=== PATIENT | female | born 1980 | race Caucasian/White ===

== ENCOUNTER 2016-09-11 06:43 | Day surgery (SDC) | payer BC, OTHER ==
[2016-09-05 15:40] VITALS: BMI 25.8
[~2016-09-11 06:43] MED LIST: DEXAMETHASONE SOD PHOSPHATE 10 MG/ML 1 ML VIAL IV ONE; HEPARIN SODIUM,PORCINE 5,000 UNIT/ML 1 ML VIAL SQ ONE; HYDROmorphone 1 MG/ML 1 ML SYRINGE IVP PRN; MIDAZOLAM 2 MG/2 ML VIAL IV PRN; SCOPOLAMINE 1.5MG/72HR PATCH TRANSDERM ONE; ceFAZolin 2 GM in SODIUM CHLORIDE 0.9% 100 ML IVPB ONE
[2016-09-11] MEDS: LACTATED RINGERS 1,000 ML IV SCH ×2 (08:10→08:15)
[2016-09-11] MEDS: LIDOCAINE 1% 20 ML VIAL (10MG/ML) FOR IV START INTRADERMA PRN ×2 (08:13→08:15)
[2016-09-11] MEDS ORDERED: fentaNYL (PF) 50 MCG/ML 2 ML AMP IV ONE (08:18)
[2016-09-11] MEDS: ONDANSETRON 4 MG/2 ML VIAL IVP ONE ×2 (08:30→12:00)
[2016-09-11] MEDS ORDERED: MIDAZOLAM 2 MG/2 ML VIAL ONE (09:24)
[2016-09-11] MEDS ORDERED: VECURONIUM 10 MG VIAL IV ONE (09:24)
[2016-09-11] MEDS ORDERED: LIDOCAINE 1% INJ 10MG/ML (20 ML MDV) ONE (09:24)
[2016-09-11] MEDS ORDERED: GLYCOPYRROLATE 0.2 MG/ML 2 ML VIAL ONE (09:24)
[2016-09-11] MEDS ORDERED: SUCCINYLCHOLINE CHLORIDE 100 MG/5 ML SYR IV ONE (09:24)
[2016-09-11] MEDS ORDERED: PHENYLEPHRINE-0.9% NACL SYG 1 MG/10 ML SYRINGE ONE (09:24)
[2016-09-11] MEDS ORDERED: KETOROLAC 30 MG/ML 1 ML VIAL ONE (09:24)
[2016-09-11] MEDS ORDERED: NEOSTIGMINE 1 MG/ML 10 ML VIAL ONE (09:24)
[2016-09-11] MEDS ORDERED: PROPOFOL 10 MG/ML 20 ML VIAL IV ONE (09:24)
[2016-09-11] MEDS ORDERED: HYDROmorphone (PF) 1 MG/ML ONE (09:24)
[2016-09-11] MEDS ORDERED: BUPIVACAIN-EPI 0.25%-1:200,000 30 ML VIAL SQ ONE (10:04)
[2016-09-11] MEDS ORDERED: LACTATED RINGERS 1,000 ML IV ONE (11:01)
--- NOTE | 2016-09-11 11:15 | P.OP ---
Date of Procedure: 09/11/16 Preoperative Diagnosis: Right inguinal hernia Postoperative Diagnosis: Right indirect inguinal hernia with right femoral hernia Procedure(s) Performed: Robot assisted right inguinal and femoral hernia repair with mesh Anesthesia: BRIAN Surgeon: Jasmine Monae Estimated Blood Loss (ml): 5 Pathology: none sent Condition: stable Disposition: PACU Indications for Procedure: right inguinal pain with swelling Operative Findings: Right indrect inguinal hernia Right femoral hernia Description of Procedure: Informed consent was obtained patient and then The patient was brought to the operating room and placed in supine position. General anesthesia with endotracheal intubation was performed as per anesthesia team. A chu catheter was inserted under sterile aseptic precautions. Choraprep was used to prep the skin followed by application of sterile drapes . The patient was placed in the lithotomy position. A timeout was performed to verify correct patient, correct procedure and correct side. Patient was confirmed to receive perioperative IV antibiotics, subcutaneous heparin 5000 units and bilateral SCDs were placed. The left upper quadrant point was identified and a stab incision was made. Veress needle was introduced and placement was confirmed with the help of the drop test. The abdomen was then insufflated to 15 mmHg. Once that was done 5 mm port was introduced into the left upper quadrant using the Optiview technique after which a 12 mm port was placed in the supraumbilical position and a 8 mm port in the right lower quadrant and then after that another 8 mm port was palce in the left lower quadrant . The robot was then docked with the central camera port and the 2 side working ports. The degree of scope was introduced and the abdomen down through the 12 mm port site. The cardiere forceps and scissors were introduced and the medial umbilical ligament was retracted and an incision was made int he peritoneum that was carried laterally to the lateral abdominal wall. This did this was further dissected with the help of blunt dissection using gentle stroking maneuvers all the way down to Navdeep ligament medially and laterally we went inferior exposing the vessels inferiorly. The round ligament was identified and the hernia sac was teased off of it with the help of blunt dissection. There was also another large piece or preperitoneal fat in conintuity wit this hernia that was herniating through the femoral canal. It was reduced with ease . Once the critical view was obtained, the 10 x 15 cm Bard Pro uppers edge burnisher mesh was introduced in the abdominal cavity with the lower part above the level of the peritoneal fold was then unfolded so that it covered all the orifices and covered the Navdeep's ligament medially once again pain positioned perfectly to seal was applied to the inferior edge of the mesh as well as around the Navdeep' s ligament after which the peritoneal flaps were closed with the help of running 2 0 v lock . the peritoneum as very fragile and care had to be taken to completely suture all the holes shit as well as not to tear it. Once that was done procedure was completed the sutures were cut. The robot was undocked and under laparoscopic vision the needles were removed. The 12 mm and the right 8 mm port site was closed with 0 pds using the kirstie call after which gas was turned off abdomen was thoroughly desufflated skins was closed with the help of 4-0 Monocryl and Dermabond. Chu catheter was removed patient was extubated and taken to recovery room in stable condition patient tolerated the procedure well there were no complications
[2016-09-11 11:31] VITALS: TEMP 97.4
[2016-09-11 12:19] VITALS: PULSE 86
[2016-09-11 12:29] VITALS: RESP 18
[2016-09-11] MEDS ORDERED: HYDROcodone/APAP 5-325MG 1 EACH TAB PO ONE (12:45)
[2016-09-11 13:05] VITALS: BP 107/62
== END 2016-09-11 13:34 | disposition home or self-care (01) ==
LOC: OR 06:43
PROVIDERS: ATTEND Surgery
DX: K41.90 Unilateral femoral hernia, without obstruction or gangrene, not specified as recurrent (principal); K40.90 Unilateral inguinal hernia, without obstruction or gangrene, not specified as recurrent; F17.290 Nicotine dependence, other tobacco product, uncomplicated; F32.9 Major depressive disorder, single episode, unspecified; Z88.1 Allergy status to other antibiotic agents; Z88.8 Allergy status to other drugs, medicaments and biological substances; Z79.899 Other long term (current) drug therapy
CPT/HCPCS: 49650; 49659; S2900; 81025

== ENCOUNTER → 2016-10-08 | Outpatient (CLI) | payer BC, OTHER | END | disposition home or self-care (01) | LOC: LABWHC1 13:34 | PROVIDERS: ATTEND Internal Medicine Endocrinology, Diabetes & Metabolism | DX: E04.1 Nontoxic single thyroid nodule (principal) | CPT/HCPCS: 36415; 84439; 84443; 84480 ==

== ENCOUNTER → 2016-11-14 | Outpatient (CLI) | payer BC | LOC: LABWHC1 11:41 | PROVIDERS: ATTEND Internal Medicine Endocrinology, Diabetes & Metabolism | DX: E04.1 Nontoxic single thyroid nodule (principal) | CPT/HCPCS: 36415; 84439; 84443 ==

== ENCOUNTER → 2016-11-27 | Outpatient (CLI) | payer BC ==
--- NOTE | 2016-11-27 10:35 | XR ---
EXAMINATION TYPE: XR chest 2V DATE OF EXAM: 11/27/2016 10:17 AM COMPARISON: 02/26/2016 INDICATION: Hemoptysis, cough TECHNIQUE: Single frontal view of the chest is obtained. FINDINGS: The heart size is normal. The pulmonary vasculature is normal. The lungs are clear. IMPRESSION: 1. No acute pulmonary process.
== END ==
LOC: RADXRMAIN 09:49
PROVIDERS: ATTEND Physician Assistant
DX: R04.2 Hemoptysis (principal)
CPT/HCPCS: 71020

== ENCOUNTER 2017-01-05 08:28 | Day surgery (SDC) | payer BC ==
[2017-01-01 15:36] VITALS: BMI 25.8
[~2017-01-05 08:28] MED LIST changes: -DEXAMETHASONE SOD PHOSPHATE 10 MG/ML 1 ML VIAL IV ONE; -HEPARIN SODIUM,PORCINE 5,000 UNIT/ML 1 ML VIAL SQ ONE; -HYDROmorphone 1 MG/ML 1 ML SYRINGE IVP PRN; +LACTATED RINGERS 1,000 ML IV SCH; +LIDOCAINE 1% 20 ML VIAL (10MG/ML) FOR IV START INTRADERMA PRN; -MIDAZOLAM 2 MG/2 ML VIAL IV PRN; -SCOPOLAMINE 1.5MG/72HR PATCH TRANSDERM ONE; -ceFAZolin 2 GM in SODIUM CHLORIDE 0.9% 100 ML IVPB ONE
[2017-01-05 08:44] VITALS: RESP 16; TEMP 97
[2017-01-05] MEDS ORDERED: PROPOFOL 10 MG/ML 20 ML VIAL IV ONE (09:19)
[2017-01-05] MEDS ORDERED: LIDOCAINE 1% INJ 10MG/ML (20 ML MDV) ONE (09:19)
[2017-01-05] MEDS ORDERED: KETOROLAC 30 MG/ML 1 ML VIAL ONE (09:19)
--- NOTE | 2017-01-05 09:21 | P.GSHP ---
History of Present Illness H&P Date: 01/05/17 Chief Complaint: GERD, dysphagia This is a 36-year-old female for from Dr. Marks. The patient has complaints of GERD dysphagia. She's also had hemoptysis. She presents today for EGD. - Constitutional Constitutional: Reports as per HPI Past Medical History Past Medical History: Neurologic Disorder, Thyroid Disorder Additional Past Medical History / Comment(s): ,left shoulder pain, kidney stones ,migraines History of Any Multi-Drug Resistant Organisms: None Reported Past Surgical History: Appendectomy, Hernia Repair, Tonsillectomy Additional Past Surgical History / Comment(s): BILAT inguinal hernia repair with mesh,kidney stone removal Past Anesthesia/Blood Transfusion Reactions: No Reported Reaction Additional Past Anesthesia/Blood Transfusion Reaction / Comment(s): no hx blood transfusion Past Psychological History: Anxiety Smoking Status: Current every day smoker Past Alcohol Use History: Occasional Additional Past Alcohol Use History / Comment(s): started smoking at age 13, smokes <1ppd Past Drug Use History: None Reported - Past Family History Mother Additional Family Medical History / Comment(s): hepatitis Father Additional Family Medical History / Comment(s): heart problems,aneurysm Medications and Allergies Home Medications Medication Instructions Recorded Confirmed Type Methimazole [Tapazole] 5 mg PO DAILY 09/05/16 01/05/17 History SUMAtriptan SUCCINATE [Sumatriptan 100 mg PO PRN 01/05/17 History Succinate] Allergies Allergy/AdvReac Type Severity Reaction Status Date / Time prochlorperazine Allergy Unknown Rash/Hives Verified 01/01/17 15:31 [From Compazine] prochlorperazine edisylate Allergy Unknown Rash/Hives Verified 01/01/17 15:31 [From Compazine] doxycycline Allergy Rash/Hives Verified 01/01/17 15:31 pseudoephedrine HCl Allergy Rash/Hives Verified 01/01/17 15:31 [From Sudafed] sertraline HCl [From Zoloft] Allergy Rash/Hives Verified 01/01/17 15:31 Surgical - Exam Vital Signs Temp Pulse Resp BP Pulse Ox 97.0 F L 76 16 95/65 98 01/05/17 08:42 01/05/17 08:42 01/05/17 08:42 01/05/17 08:42 01/05/17 08:42 - General well developed, no distress - Eyes PERRL - ENT normal pinna - Neck no masses - Respiratory normal expansion - Cardiovascular Rhythm: regular - Abdomen Abdomen: soft, non tender Assessment and Plan Plan: GERD, dysphagia. We'll perform EGD.
--- NOTE | 2017-01-05 09:30 | P.OP ---
Date of Procedure: 01/05/17 Preoperative Diagnosis: GERD, dysphagia Postoperative Diagnosis: Mild antral gastritis Small hiatal hernia Mild esophagitis Procedure(s) Performed: EGD Implants: Anesthesia: MAC Surgeon: Daniel Vann Pathology: other (Antrum, esophagus) Condition: stable Disposition: PACU Indications for Procedure: Operative Findings: Description of Procedure: The patient's placed on the endoscopy table in the lateral position. She received IV sedation. The gastroscope some placed oropharynx and passed into the esophagus and into the stomach. Scope was then placed through the pylorus. The first and second portion of the duodenum appeared normal. Scope was then brought back the antrum and this appeared mildly inflamed. A biopsies performed. The scope was unretroflexed and remainder some appeared normal. There was a small hiatal hernia. The GE junction was at 40 cm. The distal esophagus appeared mildly inflamed and a biopsy was performed. The proximal esophagus appeared normal. The scope was withdrawn for patient.
[2017-01-05 09:55] VITALS: BP 98/73; PULSE 71
== END 2017-01-05 10:40 | disposition home or self-care (01) ==
LOC: ORWHC2ENDO 08:28
PROVIDERS: ATTEND Surgery
DX: K29.50 Unspecified chronic gastritis without bleeding (principal); K20.0 Eosinophilic esophagitis; K44.9 Diaphragmatic hernia without obstruction or gangrene; E07.9 Disorder of thyroid, unspecified; F17.200 Nicotine dependence, unspecified, uncomplicated; Z79.899 Other long term (current) drug therapy; Z88.8 Allergy status to other drugs, medicaments and biological substances
CPT/HCPCS: 81025; 88305; 88312; 88342; 43239; J2001; J1885; J2704

== ENCOUNTER → 2017-01-09 | Outpatient (CLI) | payer BC, OTHER | END | disposition home or self-care (01) | LOC: LABWHC1 09:44 | PROVIDERS: ATTEND Internal Medicine Endocrinology, Diabetes & Metabolism | DX: E04.1 Nontoxic single thyroid nodule (principal) | CPT/HCPCS: 36415; 84439; 84443; 84480 ==

== ENCOUNTER 2017-01-31 07:54 | Emergency (ER) | payer BC, OTHER ==
[2017-01-31] MEDS ORDERED: SODIUM CHLORIDE 0.9% 1,000 ML IV STA (08:20)
[2017-01-31] MEDS ORDERED: ONDANSETRON 4 MG/2 ML VIAL IVP STA ×2 (08:20→10:18)
[2017-01-31] MEDS ORDERED: DICYCLOMINE 10 MG/ML 2 ML AMP IM STA (08:20)
[2017-01-31] MEDS ORDERED: SODIUM CHLORIDE 0.9% 500 ML IV STA ×2 (08:22→10:18)
--- NOTE | 2017-01-31 08:22 | ED ---
General Adult HPI - General Chief complaint: Dizziness Stated complaint: flu symptoms Time Seen by Provider: 01/31/17 08:11 Source: patient, RN notes reviewed Mode of arrival: ambulatory Limitations: no limitations - History of Present Illness Initial comments: 36-year-old female who presents emergency room today with chief complaint of symptoms of nausea vomiting diarrhea over the last week. She states she had symptoms started approximately a week ago with diarrhea and is felt nauseous throughout the week. She does admit to cramping in the abdomen. States she has had chills. She was to bodyaches. She denies any other complaints or symptoms at this time. Patient denies any recent fever, shortness of breath, chest pain, numbness or tingling, dysuria or hematuria, constipation or diarrhea , headaches or visual changes, or any other complaints. - Related Data Home Medications Medication Instructions Recorded Confirmed Methimazole [Tapazole] 5 mg PO DAILY 09/05/16 01/05/17 SUMAtriptan SUCCINATE [Sumatriptan 100 mg PO PRN 01/05/17 Succinate] Allergies Allergy/AdvReac Type Severity Reaction Status Date / Time prochlorperazine Allergy Unknown Rash/Hives Verified 01/31/17 07:59 [From Compazine] prochlorperazine edisylate Allergy Unknown Rash/Hives Verified 01/31/17 07:59 [From Compazine] doxycycline Allergy Rash/Hives Verified 01/31/17 07:59 pseudoephedrine HCl Allergy Rash/Hives Verified 01/31/17 07:59 [From Sudafed] sertraline HCl [From Zoloft] Allergy Rash/Hives Verified 01/31/17 07:59 Review of Systems ROS Statement: Those systems with pertinent positive or pertinent negative responses have been documented in the HPI. ROS Other: All systems not noted in ROS Statement are negative. Past Medical History Past Medical History: Neurologic Disorder, Thyroid Disorder Additional Past Medical History / Comment(s): ,left shoulder pain, kidney stones ,migraines History of Any Multi-Drug Resistant Organisms: None Reported Past Surgical History: Appendectomy, Hernia Repair, Tonsillectomy Additional Past Surgical History / Comment(s): BILAT inguinal hernia repair with mesh,kidney stone removal Past Anesthesia/Blood Transfusion Reactions: No Reported Reaction Additional Past Anesthesia/Blood Transfusion Reaction / Comment(s): no hx blood transfusion Past Psychological History: Anxiety Smoking Status: Current every day smoker Past Alcohol Use History: Occasional Past Drug Use History: None Reported - Past Family History Mother Additional Family Medical History / Comment(s): hepatitis Father Additional Family Medical History / Comment(s): heart problems,aneurysm General Exam - General Exam Comments Initial Comments: General: The patient is awake and alert, in no distress, and does not appear acutely ill. Eye: Pupils are equal, round and reactive to light, extra-ocular movements are intact. No nystagmus. There is normal conjunctiva bilaterally. No signs of icterus. Ears, nose, mouth and throat: There are moist mucous membranes and no oral lesions. Neck: The neck is supple, there is no tenderness or JVD. Cardiovascular: There is a regular rate and rhythm. No murmur, rub or gallop is appreciated. Respiratory: Lungs are clear to auscultation, respirations are non-labored, breath sounds are equal. No wheezes, stridor, rales, or rhonchi. Gastrointestinal: Soft, non-distended, non-tender abdomen without masses or organomegaly noted. There is no rebound or guarding present. No CVA tenderness. Bowel sounds are unremarkable. Musculoskeletal: Normal ROM, no tenderness. Strength 5/5. Sensation intact. Pulses equal bilaterally 2+. Neurological: A&O x 3. CN II-XII intact, There are no obvious motor or sensory deficits. Coordination appears grossly intact. Speech is normal. Skin: Skin is warm and dry and no rashes or lesions are noted. Psychiatric: Cooperative, appropriate mood & affect, normal judgment. Limitations: no limitations Course Vital Signs 01/31/17 01/31/17 07:57 08:55 Temperature 97.0 F L Pulse Rate 84 78 Respiratory 20 18 Rate Blood Pressure 112/73 108/66 O2 Sat by Pulse 97 94 L Oximetry Medical Decision Making - Medical Decision Making Reexamined at this time shows no signs of distress. Feeling better here in the emergency room. Labs been reviewed mild elevation of liver enzymes. Was discussed with patient. She is advised follow-up family doctor have repeat enzymes performed over the next week. Advised to return if symptoms increase or worsen. She does have nausea medication at home that she can use. She is advised that if it is not working to return here to the emergency room if any symptoms increase or worsen. She states understanding and is in agreement. - Lab Data Result diagrams: 01/31/17 08:50 01/31/17 08:50 Lab Results 01/31/17 01/31/17 01/31/17 Range/Units 08:50 08:50 08:50 WBC 5.3 (3.8-10.6) k/uL RBC 4.63 (3.80-5.40) m/uL Hgb 14.8 (11.4-16.0) gm/dL Hct 43.9 (34.0-46.0) % MCV 94.7 (80.0-100.0) fL MCH 32.0 (25.0-35.0) pg MCHC 33.8 (31.0-37.0) g/dL RDW 12.3 (11.5-15.5) % Plt Count 205 (150-450) k/uL Neutrophils % 64 % Lymphocytes % 23 % Monocytes % 7 % Eosinophils % 3 % Basophils % 1 % Neutrophils # 3.4 (1.3-7.7) k/uL Lymphocytes # 1.2 (1.0-4.8) k/uL Monocytes # 0.4 (0-1.0) k/uL Eosinophils # 0.1 (0-0.7) k/uL Basophils # 0.0 (0-0.2) k/uL Sodium 143 (137-145) mmol/L Potassium 3.6 (3.5-5.1) mmol/L Chloride 106 (98-107) mmol/L Carbon Dioxide 27 (22-30) mmol/L Anion Gap 10 mmol/L BUN 11 (7-17) mg/dL Creatinine 0.73 (0.52-1.04) mg/dL Est GFR (MDRD) Af Amer >60 (>60 ml/min/1.73 sqM) Est GFR (MDRD) Non-Af >60 (>60 ml/min/1.73 sqM) Glucose 96 (74-99) mg/dL Calcium 9.6 (8.4-10.2) mg/dL Total Bilirubin 0.6 (0.2-1.3) mg/dL AST 59 H (14-36) U/L ALT 89 H (9-52) U/L Alkaline Phosphatase 92 (38-126) U/L Total Protein 6.6 (6.3-8.2) g/dL Albumin 4.0 (3.5-5.0) g/dL Amylase <30 L (30-110) U/L Lipase 37 (23-300) U/L Urine Color Urine Appearance (Clear) Urine pH (5.0-8.0) Ur Specific [place] (1.001-1.035) Urine Protein (Negative) Urine Glucose (UA) (Negative) Urine Ketones (Negative) Urine Blood (Negative) Urine Nitrite (Negative) Urine Bilirubin (Negative) Urine Urobilinogen (<2.0) mg/dL Ur Leukocyte Esterase (Negative) Urine RBC (0-5) /hpf Urine WBC (0-5) /hpf Ur Squamous Epith Cells (0-4) /hpf Calcium Oxalate Crystal (None) /hpf Urine Mucus (None) /hpf Urine HCG, Qual Not Detected (Not Detectd) 01/31/17 Range/Units 08:50 WBC (3.8-10.6) k/uL RBC (3.80-5.40) m/uL Hgb (11.4-16.0) gm/dL Hct (34.0-46.0) % MCV (80.0-100.0) fL MCH (25.0-35.0) pg MCHC (31.0-37.0) g/dL RDW (11.5-15.5) % Plt Count (150-450) k/uL Neutrophils % % Lymphocytes % % Monocytes % % Eosinophils % % Basophils % % Neutrophils # (1.3-7.7) k/uL Lymphocytes # (1.0-4.8) k/uL Monocytes # (0-1.0) k/uL Eosinophils # (0-0.7) k/uL Basophils # (0-0.2) k/uL Sodium (137-145) mmol/L Potassium (3.5-5.1) mmol/L Chloride (98-107) mmol/L Carbon Dioxide (22-30) mmol/L Anion Gap mmol/L BUN (7-17) mg/dL Creatinine (0.52-1.04) mg/dL Est GFR (MDRD) Af Amer (>60 ml/min/1.73 sqM) Est GFR (MDRD) Non-Af (>60 ml/min/1.73 sqM) Glucose (74-99) mg/dL Calcium (8.4-10.2) mg/dL Total Bilirubin (0.2-1.3) mg/dL AST (14-36) U/L ALT (9-52) U/L Alkaline Phosphatase (38-126) U/L Total Protein (6.3-8.2) g/dL Albumin (3.5-5.0) g/dL Amylase (30-110) U/L Lipase (23-300) U/L Urine Color Yellow Urine Appearance Cloudy H (Clear) Urine pH 5.5 (5.0-8.0) Ur Specific [place] 1.028 (1.001-1.035) Urine Protein Trace H (Negative) Urine Glucose (UA) Negative (Negative) Urine Ketones Trace H (Negative) Urine Blood Negative (Negative) Urine Nitrite Negative (Negative) Urine Bilirubin Negative (Negative) Urine Urobilinogen 2.0 (<2.0) mg/dL Ur Leukocyte Esterase Negative (Negative) Urine RBC 2 (0-5) /hpf Urine WBC 1 (0-5) /hpf Ur Squamous Epith Cells 3 (0-4) /hpf Calcium Oxalate Crystal Occasional H (None) /hpf Urine Mucus Moderate H (None) /hpf Urine HCG, Qual (Not Detectd) Disposition Clinical Impression: Nausea vomiting and diarrhea Disposition: HOME SELF-CARE Condition: Good Instructions: Acute Nausea and Vomiting (ED) Additional Instructions: Please use medication as discussed. Please follow-up with family doctor in the next 2 days of symptoms have not improved. Please return to emergency room if the symptoms increase or worsen or for any other concerns. Referrals: Wil Paris MD [Primary Care Provider] - 1-2 days Time of Disposition: 11:08
[2017-01-31 09:23] LABS: Basophils % (A) 1 %; CH 32.2; CHCM 34.1; Eosinophils # (A) 0.1 k/uL (0-0.7); Eosinophils % (A) 3 %; HCT 43.9 % (34.0-46.0); HDW 2.24; HGB 14.8 gm/dL (11.4-16.0); Luc # (Auto) 0.16; Luc % (Auto) 3; Lymphocytes # (A) 1.2 k/uL (1.0-4.8); Lymphocytes % (A) 23 %; MCHC 33.8 g/dL (31.0-37.0); MCV 94.7 fL (80.0-100.0); Mean Platelet Volume 6.9; Monocytes # (A) 0.4 k/uL (0-1.0); Monocytes % (A) 7 %; Neutrophils # (A) 3.4 k/uL (1.3-7.7); Neutrophils % (A) 64 %; RBC 4.63 m/uL (3.80-5.40); RDW 12.3 % (11.5-15.5); WBC 5.3 k/uL (3.8-10.6); WBC (Perox) 5.28
[2017-01-31 09:30] LABS: ALT 89 U/L (9-52); AST 59 U/L (14-36); Alkaline Phosphatase 92 U/L (38-126); Amylase <30 U/L (30-110); Anion Gap 10 mmol/L; Blood Urea Nitrogen 11 mg/dL (7-17); Calcium 9.6 mg/dL (8.4-10.2); Carbon Dioxide 27 mmol/L (22-30); Chloride 106 mmol/L (98-107); Glucose 96 mg/dL (74-99); Non-African American GFR(MDRD) >60 (>60 ml/min/1.73 sqM); Potassium 3.6 mmol/L (3.5-5.1); Sodium 143 mmol/L (137-145); Total Bilirubin 0.6 mg/dL (0.2-1.3); Total Protein 6.6 g/dL (6.3-8.2)
[2017-01-31 09:32] LABS: Appearance,Urine Cloudy (Clear); Bilirubin,Urine Negative (Negative); Calcium Oxalate Crystals,Urine Occasional /hpf; Glucose,Urine (UA) Negative (Negative); Ketones,Urine Trace (Negative); Leukocyte Esterase,Urine Negative (Negative); Mucus,Urine Moderate /hpf; Nitrite,Urine Negative (Negative); PH, Urine 5.5 (5.0-8.0); Particle Count 9182; Protein,Urine Trace (Negative); RBC,Urine 2 /hpf (0-5); Specific Gravity,Urine 1.028 (1.001-1.035); Squamous Epithelial Cell,Urine 3 /hpf (0-4); UA Billing (MACRO vs. MICRO) MICRO; WBC,Urine 1 /hpf (0-5)
--- NOTE | 2017-01-31 09:54 | XR ---
EXAMINATION TYPE: XR KUB DATE OF EXAM: 01/31/2017 COMPARISON: NONE HISTORY: Pain TECHNIQUE: One view abdominal series FINDINGS: The osseous structures are intact. The bowel gas pattern is nonspecific. Lung bases are clear. IMPRESSION: 1. Nonspecific abdomen.
[2017-01-31 11:34] VITALS: BP 109/76; PULSE 71; RESP 16; TEMP 97.6
== END 2017-01-31 11:34 | disposition home or self-care (01) ==
LOC: EC 07:54
DX: R11.2 Nausea with vomiting, unspecified (principal); R19.7 Diarrhea, unspecified; R10.9 Unspecified abdominal pain; E07.9 Disorder of thyroid, unspecified; F17.200 Nicotine dependence, unspecified, uncomplicated; Z98.890 Other specified postprocedural states; Z90.49 Acquired absence of other specified parts of digestive tract; Z88.8 Allergy status to other drugs, medicaments and biological substances; Z88.1 Allergy status to other antibiotic agents; Z79.899 Other long term (current) drug therapy
CPT/HCPCS: 99284; 96372; 96374; 96376; 96361 ×3; 36415; 80053; 82150; 83690; 85025; 81001; 81025; 74000; J0500; J2405

== ENCOUNTER → 2017-03-10 | Outpatient (CLI) | payer BC, OTHER ==
[2017-03-10 15:56] LABS: Prolactin 14.6 ng/mL (3.0-18.6)
[2017-03-10 21:16] LABS: ACTH 17.9 pg/mL (0.00-45.99)
== END | disposition home or self-care (01) ==
LOC: LABWHC1 14:35
PROVIDERS: ATTEND Internal Medicine Endocrinology, Diabetes & Metabolism
DX: E04.1 Nontoxic single thyroid nodule (principal); R53.83 Other fatigue
CPT/HCPCS: 36415; 82024; 82533; 84146; 84439; 84443; 84480

== ENCOUNTER 2017-10-15 09:53 | Day surgery (SDC) | payer BC, OTHER ==
[2017-10-14 10:39] VITALS: BMI 23.3
[~2017-10-15 09:53] MED LIST changes: -LIDOCAINE 1% 20 ML VIAL (10MG/ML) FOR IV START INTRADERMA PRN
[2017-10-15 11:10] VITALS: TEMP 97.4
[2017-10-15] MEDS ORDERED: LIDOCAINE 1% INJ 10MG/ML (20 ML MDV) ONE (11:49)
[2017-10-15] MEDS ORDERED: PROPOFOL 10 MG/ML 20 ML VIAL IV ONE (11:49)
--- NOTE | 2017-10-15 12:33 | P.PCN ---
Date of Procedure: 10/15/17 Procedure(s) Performed: Procedure: Colonoscopy and biopsy. Preoperative diagnosis: Abdominal pain and diarrhea. Postoperative diagnosis: Exam within the colon and terminal ileum within normal limits. Preparation: HalfLytely prep. Sedation: Was provided by anesthesia. Brief clinical history: The patient is a 36-year-old female who is referred for this evaluation because of abdominal pains and diarrhea a few months duration. No bleeding or extraintestinal manifestations of inflammatory bowel disease or family history of inflammatory bowel disease. Procedure: With the patient on her left lateral decubitus position and after informed consent and adequate sedation, the perianal area was inspected and it did not show any fissures or fistulas. There were no masses felt on digital rectal examination. The Olympus CFQ 160L video colonoscope was then inserted in the rectum in the usual fashion and advanced to the cecum. I intubated the ileocecal valve and examined the terminal ileum. Terminal ileum and colon appeared healthy with no edema, erythema, friability, ulceration, exudation or spontaneous bleeding. I obtained biopsies from the terminal ileum and randomly from the colon then the endoscope was withdrawn. The patient tolerated the procedure well. Plan: The patient was reassured. Will await biopsy results. She will follow- up with you as planned and further plans will be made based on course and biopsy results.
[2017-10-15 13:04] VITALS: BP 108/70; PULSE 66; RESP 18
== END 2017-10-15 13:18 | disposition home or self-care (01) ==
LOC: ORWHC2ENDO 09:53
DX: R10.9 Unspecified abdominal pain (principal); R19.7 Diarrhea, unspecified; G43.909 Migraine, unspecified, not intractable, without status migrainosus; N20.0 Calculus of kidney; E07.9 Disorder of thyroid, unspecified; Z88.1 Allergy status to other antibiotic agents; Z88.8 Allergy status to other drugs, medicaments and biological substances; F17.210 Nicotine dependence, cigarettes, uncomplicated; Z79.1 Long term (current) use of non-steroidal anti-inflammatories (NSAID); Z79.899 Other long term (current) drug therapy
CPT/HCPCS: 88305; 45380; J2001; J2704

== ENCOUNTER → 2017-10-23 | Outpatient (CLI) | payer OTHER ==
[2017-10-23 18:04] LABS: T4, Free (Free Thyroxine) 0.92 ng/dL (0.78-2.19)
--- NOTE | 2017-10-24 09:11 | US ---
EXAMINATION TYPE: US pelvic complete DATE OF EXAM: 10/23/2017 COMPARISON: NONE CLINICAL HISTORY: Post Menopausal Bleeding and ovarian failure N95.0;no menses since February 2010 TECHNIQUE: Transvaginal (TV); patient's bladder was not full, thus TV US was offered to better asse ss endometrium Date of LMP: 2009 EXAM MEASUREMENTS: Uterus: 7.1 x 5.0 x 3.7 cm Endometrial Stripe: 1.4 cm Right Ovary: 2.3 x 1.4 x 1.4 cm Left Ovary: 2.8 x 1.9 x 1.8 cm 1. Uterus: Anteverted; small Nabothian cysts in cervic with largest = 0.3 x 0.3 x 0.21cm 2. Endometrium: thickened endometrium; complex hypoechoic area in upper endometrium = 0.5 x 0.5 x 0. 4cm 3. Right Ovary: couple of follicles with largest as simple cyst = 0.9 x 0.7 x 0.8cm. 4. Left Ovary: borders not well seen 5. Bilateral Adnexa: wnl 6. Posterior cul-de-sac: wnl IMPRESSION: Endometrium is heterogeneous and abnormally thickened if patient is truly postmenopausal at 36 years of age.
== END | disposition home or self-care (01) ==
LOC: RADUSWWP 16:12
PROVIDERS: ATTEND Obstetrics & Gynecology
DX: R93.8 Abnormal findings on diagnostic imaging of other specified body structures (principal); E28.39 Other primary ovarian failure; N95.0 Postmenopausal bleeding; E04.1 Nontoxic single thyroid nodule; E05.90 Thyrotoxicosis, unspecified without thyrotoxic crisis or storm
CPT/HCPCS: 76830; 82670; 83001; 83002; 83520; 84146; 84439; 84443

== ENCOUNTER → 2017-11-20 | Outpatient (CLI) | payer OTHER ==
[2017-11-20 09:22] LABS: Basophils # (A) 0.1 k/uL (0-0.2); Basophils % (A) 1 %; Eosinophils # (A) 0.3 k/uL (0-0.7); Eosinophils % (A) 4 %; HCT 42.9 % (34.0-46.0); HGB 14.7 gm/dL (11.4-16.0); Lymphocytes # (A) 2.4 k/uL (1.0-4.8); Lymphocytes % (A) 34 %; MCH 30.9 pg (25.0-35.0); MCHC 34.3 g/dL (31.0-37.0); MCV 90.1 fL (80.0-100.0); Mean Platelet Volume 6.7; Monocytes # (A) 0.6 k/uL (0-1.0); Monocytes % (A) 8 %; Neutrophils # (A) 3.7 k/uL (1.3-7.7); Neutrophils % (A) 51 %; Platelet Count 278 k/uL (150-450); RBC 4.76 m/uL (3.80-5.40); RDW 12.1 % (11.5-15.5); WBC 7.2 k/uL (3.8-10.6)
== END | disposition home or self-care (01) ==
LOC: LABPAT 09:02
PROVIDERS: ATTEND Obstetrics & Gynecology
DX: Z01.812 Encounter for preprocedural laboratory examination (principal)
CPT/HCPCS: 36415; 85025

== ENCOUNTER → 2017-12-18 | Outpatient (CLI) | payer OTHER ==
[2017-12-18 15:08] LABS: T4, Free (Free Thyroxine) 0.91 ng/dL (0.78-2.19)
== END | disposition home or self-care (01) ==
LOC: LABWHC1 14:00
PROVIDERS: ATTEND Internal Medicine Endocrinology, Diabetes & Metabolism
DX: E05.90 Thyrotoxicosis, unspecified without thyrotoxic crisis or storm (principal)
CPT/HCPCS: 36415; 84439; 84443; 84480

== ENCOUNTER → 2017-12-25 | Outpatient (CLI) | payer OTHER ==
--- NOTE | 2017-12-25 15:52 | US ---
EXAMINATION TYPE: US thyroid st tissue head/neck DATE OF EXAM: 12/25/2017 COMPARISON: NONE CLINICAL HISTORY: E04.1 THYROID NODULE. follow up on nodule GLAND SIZE: Right Lobe: 4.8 x 1.1 x 1.6 cm Overall Parenchyma: homogenous Left Lobe: 5.5 x 1.3 x 1.6 cm Overall Parenchyma: homogeneous Isthmus Thickness: 0.5 cm NODULES RIGHT: # of nodules measured on right: 0 LEFT: # of nodules measured on left: 0 ISTHMUS: # of nodules measured in the isthmus: 0 1. 1.3 X 1.2 x 0.7 cm mixed nodule at the right isthmus with well-defined margins. This nodule is wider than tall and shows no intranodular vascularity. Prior size: 1.3 x 0.7 x 0.9 cm Bilateral neck scanned, no evidence of lymphadenopathy. IMPRESSION: Nonspecific thyroid nodularity.
== END | disposition home or self-care (01) ==
LOC: RADUSWWP 13:50
PROVIDERS: ATTEND Internal Medicine Endocrinology, Diabetes & Metabolism
DX: E04.1 Nontoxic single thyroid nodule (principal)
CPT/HCPCS: 76536

== ENCOUNTER 2018-01-23 20:21 | Emergency (ER) | payer OTHER ==
[2018-01-23 20:30] VITALS: RESP 18
[2018-01-23] MEDS ORDERED: KETOROLAC 30 MG/ML 1 ML VIAL IVP STA (20:47)
[2018-01-23] MEDS ORDERED: METOCLOPRAMIDE 5 MG/ML 2 ML VIAL IVP STA (20:47)
[2018-01-23] MEDS ORDERED: diphenhydrAMINE 50 MG/ML 1 ML VIAL IVP STA (20:47)
[2018-01-23] MEDS ORDERED: SODIUM CHLORIDE 0.9% 1,000 ML IV STA (20:47)
--- NOTE | 2018-01-23 20:51 | ED ---
Headache HPI - General Chief Complaint: Headache Stated Complaint: Migraine Time Seen by Provider: 01/23/18 20:33 Source: RN notes reviewed Mode of arrival: ambulatory Limitations: no limitations - History of Present Illness Initial Comments: This is a 37-year-old female who presents to the emergency department with chief complaint of migraine. Patient does report a history of migraines and states that her current migraine is no different from previous. She states that she has a right-sided migraine for the past 4 days. She states that she has tried taking her Imitrex which has not provided any relief. She states she was also tried ibuprofen. She states that sometimes the Imitrex works and other times it does not. She also reports associated nausea. Denies fevers or chills, chest pain or shortness of breath, abdominal pain, vomiting, diarrhea or constipation. She denies any recent falls, injuries or trauma. - Related Data Home Medications Medication Instructions Recorded Confirmed SUMAtriptan SUCCINATE [Sumatriptan 100 mg PO DAILY PRN 01/05/17 01/23/18 Succinate] Citalopram Hydrobromide 40 mg PO HS 10/14/17 01/23/18 [Citalopram HBr] Ibuprofen [Motrin] 800 mg PO TID PRN 10/14/17 01/23/18 Methimazole [Tapazole] 2.5 mg PO QAM 11/23/17 01/23/18 Previous Rx's Medication Instructions Recorded Ibuprofen [Motrin] 600 mg PO Q6HR PRN #30 tab 11/26/17 Allergies Allergy/AdvReac Type Severity Reaction Status Date / Time prochlorperazine Allergy Unknown Rash/Hives Verified 01/23/18 20:30 [From Compazine] prochlorperazine edisylate Allergy Unknown Rash/Hives Verified 01/23/18 20:30 [From Compazine] doxycycline Allergy Rash/Hives Verified 01/23/18 20:30 pseudoephedrine HCl Allergy Rash/Hives Verified 01/23/18 20:30 [From Sudafed] sertraline HCl [From Zoloft] Allergy Rash/Hives Verified 01/23/18 20:30 Review of Systems ROS Statement: Those systems with pertinent positive or pertinent negative responses have been documented in the HPI. ROS Other: All systems not noted in ROS Statement are negative. Past Medical History Past Medical History: Neurologic Disorder, Thyroid Disorder Additional Past Medical History / Comment(s): ,left shoulder pain, kidney stones ,migraines History of Any Multi-Drug Resistant Organisms: None Reported Past Surgical History: Appendectomy, Hernia Repair, Tonsillectomy Additional Past Surgical History / Comment(s): BILAT inguinal hernia repair with mesh,kidney stone removal Past Anesthesia/Blood Transfusion Reactions: No Reported Reaction Additional Past Anesthesia/Blood Transfusion Reaction / Comment(s): no hx blood transfusion Past Psychological History: Anxiety Smoking Status: Current every day smoker Past Alcohol Use History: Occasional Past Drug Use History: None Reported - Past Family History Mother Additional Family Medical History / Comment(s): hepatitis Father Additional Family Medical History / Comment(s): heart problems,aneurysm General Exam - General Exam Comments Initial Comments: General: Awake and alert, well-developed; in no apparent distress. Lying comfortably on ED stretcher with 2 children at bedside. Lights are turned off. HEENT: Head atraumatic, normocephalic. Pupils are equal, round and reactive to light. Extraocular movements intact. Oropharynx moist without erythema or exudate. Neck: Supple. Normal ROM. Cardiovascular: Regular rate and rhythm. No murmurs, rubs or gallops. Chest symmetrical. Respiratory: Lungs clear to auscultation bilaterally. No wheezes, rales or rhonchi. Normal respiratory effort with no use of accessory muscles. Musculoskeletal: Normal ROM, no tenderness bilateral upper and lower extremities. Skin: [place], warm and dry without rashes or lesions. Neurological: Alert and oriented x3. CN II-XII grossly intact. Speech is fluent and answers are appropriate. No focal neuro deficits. Psychiatric: Normal mood and affect. No overt signs of depression or anxiety noted. Limitations: no limitations Course Vital Signs 01/23/18 20:28 Temperature 98.2 F Pulse Rate 84 Respiratory 18 Rate Blood Pressure 113/76 O2 Sat by Pulse 97 Oximetry Medical Decision Making - Medical Decision Making This is a 37-year-old female who presents to the emergency department with chief complaint of migraine. Patient does have a history of migraine and states that her current one is no different from her normal. She states that she has been taking Imitrex at home with minimal relief. She states that sometimes Imitrex does not work for her and other times it does. Denies any recent falls, injuries or trauma. Patient given headache cocktail and fluids while in the emergency department. She states that her headache has improved and is ready to be discharged home. Vital signs are stable and patient is in no acute distress. She'll be discharged home at this time. All questions answered. Disposition Clinical Impression: Migraine Disposition: HOME SELF-CARE Condition: Good Instructions: Migraine Headache (ED) Additional Instructions: Please follow up with primary care provider within 1-2 days. Return to emergency department if symptoms should worsen or any concerns arise. Is patient prescribed a controlled substance at d/c from ED?: No Referrals: Wil Paris MD [Primary Care Provider] - 1-2 days Time of Disposition: 21:38
[2018-01-23 22:01] VITALS: BP 133/77; PULSE 90; TEMP 98
== END 2018-01-23 22:01 | disposition home or self-care (01) ==
LOC: EC 20:21
DX: G43.909 Migraine, unspecified, not intractable, without status migrainosus (principal); E07.9 Disorder of thyroid, unspecified; F41.9 Anxiety disorder, unspecified; F17.200 Nicotine dependence, unspecified, uncomplicated; Z79.899 Other long term (current) drug therapy; Z88.1 Allergy status to other antibiotic agents; Z88.8 Allergy status to other drugs, medicaments and biological substances
CPT/HCPCS: 99283; 96374; 96375 ×2; 96361; J1200; J2765; J1885

== ENCOUNTER → 2018-02-22 | Outpatient (CLI) | payer OTHER ==
[2018-02-22 14:35] LABS: Basophils % (A) 1 %; Eosinophils # (A) 0.2 k/uL (0-0.7); Eosinophils % (A) 3 %; HCT 39.3 % (34.0-46.0); HGB 13.2 gm/dL (11.4-16.0); Lymphocytes # (A) 1.8 k/uL (1.0-4.8); Lymphocytes % (A) 30 %; MCH 31.1 pg (25.0-35.0); MCHC 33.6 g/dL (31.0-37.0); MCV 92.8 fL (80.0-100.0); Mean Platelet Volume 6.9; Monocytes # (A) 0.4 k/uL (0-1.0); Monocytes % (A) 6 %; Neutrophils # (A) 3.5 k/uL (1.3-7.7); Neutrophils % (A) 59 %; Platelet Count 207 k/uL (150-450); RBC 4.24 m/uL (3.80-5.40); RDW 12.4 % (11.5-15.5); WBC 5.9 k/uL (3.8-10.6)
[2018-02-22 14:57] LABS: Anion Gap 11 mmol/L; Blood Urea Nitrogen 10 mg/dL (7-17); Calcium 9.4 mg/dL (8.4-10.2); Carbon Dioxide 29 mmol/L (22-30); Chloride 103 mmol/L (98-107); Glucose 86 mg/dL (74-99); Potassium 4.1 mmol/L (3.5-5.1); Sodium 143 mmol/L (137-145)
== END | disposition home or self-care (01) ==
LOC: LABPAT 14:01
PROVIDERS: ATTEND Obstetrics & Gynecology
DX: Z01.812 Encounter for preprocedural laboratory examination (principal)
CPT/HCPCS: 36415; 80048; 85025

== ENCOUNTER 2018-02-25 05:40 | Observation (INO) | payer OTHER ==
[2018-02-22 15:48] VITALS: BMI 22.6
--- NOTE | 2018-02-24 16:29 | P.HPOB ---
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 Endometrial biopsy and sampling was done revealing benign tissue however she continues to bleed despite this sampling and need for more thorough evaluation is done. Is also very disconcerting to her that she continues to have bleeding and she is postmenopausal based on labs. Risks/ benefits/alternatives to a robotic-assisted left scopic hysterectomy with possible NICOLE and possible BSO was discussed and thoroughly reviewed with the patient and all questions were answered for her prior to proceeding to the operating room. 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 All other questions are answered for her prior to proceeding to the operating room. Past Medical History Past Medical History: GERD/Reflux, Thyroid Disorder Additional Past Medical History / Comment(s): left shoulder pain, kidney stones , migraines,varicose veins, History of Any Multi-Drug Resistant Organisms: None Reported Past Surgical History: Appendectomy, Hernia Repair, Tonsillectomy Additional Past Surgical History / Comment(s): alberto inguinal hernia with mesh, lithotripsy Past Anesthesia/Blood Transfusion Reactions: No Reported Reaction Additional Past Anesthesia/Blood Transfusion Reaction / Comment(s): . Smoking Status: Current every day smoker - Past Family History Mother Family Medical History: No Reported History Additional Family Medical History / Comment(s): . Father Additional Family Medical History / Comment(s): heart problems,aneurysm Medications and Allergies Home Medications Medication Instructions Recorded Confirmed Type SUMAtriptan SUCCINATE [Sumatriptan 100 mg PO DAILY PRN 01/05/17 02/22/18 History Succinate] Citalopram Hydrobromide 40 mg PO HS 10/14/17 02/22/18 History [Citalopram HBr] Methimazole [Tapazole] 2.5 mg PO Q48H 11/23/17 02/22/18 History Ibuprofen [Motrin] 600 mg PO Q6HR PRN #30 tab 11/26/17 02/22/18 Rx Methimazole [Tapazole] 5 mg PO Q48H 02/22/18 02/22/18 History Allergies Allergy/AdvReac Type Severity Reaction Status Date / Time prochlorperazine Allergy Unknown Rash/Hives Verified 02/22/18 15:39 [From Compazine] prochlorperazine edisylate Allergy Unknown Rash/Hives Verified 02/22/18 15:39 [From Compazine] doxycycline Allergy Rash/Hives Verified 02/22/18 15:39 pseudoephedrine HCl Allergy Rash/Hives Verified 02/22/18 15:39 [From Sudafed] sertraline HCl [From Zoloft] Allergy Rash/Hives Verified 02/22/18 15:39 Exam Osteopathic Statement: *. No significant issues noted on an osteopathic structural exam other than those noted in the History and Physical/Consult. - OBG Physical Exam Breast: both: normal (no masses) Abdomen: bowel sounds normal, no diffuse tenderness, no bruit present, no guarding noted, no hepatomegaly, no splenomegaly, no mass Vulva: both: normal Vagina: normal moisture, no discharge Cervix: no lesion, no discharge Uterus: normal size, normal contour Adnexa: both: normal Anus/Rectum: normal perianal skin, no rectal mass, no hemorrhoids, heme negative
[~2018-02-25 05:40] MED LIST changes: -LACTATED RINGERS 1,000 ML IV SCH; +ceFAZolin IN SWFI 2 GM/20 ML SYRINGE IVP ONE
[2018-02-25] MEDS ORDERED: MIDAZOLAM 2 MG/2 ML VIAL IV PRN (05:43)
[2018-02-25] MEDS ORDERED: HYDROmorphone 0.5 MG/0.5 ML SYRINGE IVP PRN (05:43)
[2018-02-25] MEDS ORDERED: ONDANSETRON 4 MG/2 ML VIAL IVP ONE (05:43)
[2018-02-25] MEDS ORDERED: DEXAMETHASONE SOD PHOSPHATE 10 MG/ML 1 ML VIAL IV ONE (05:43)
[2018-02-25] MEDS: LACTATED RINGERS 1,000 ML IV SCH ×2 (06:34→07:32)
[2018-02-25] MEDS ORDERED: LIDOCAINE 1% 20 ML VIAL (10MG/ML) FOR IV START SQ ONE (06:34)
[2018-02-25] MEDS ORDERED: KETOROLAC 30 MG/ML 1 ML VIAL ONE (07:33)
[2018-02-25] MEDS ORDERED: HYDROmorphone (PF) 1 MG/ML ONE (07:33)
[2018-02-25] MEDS ORDERED: NEOSTIGMINE 1 MG/ML 10 ML VIAL ONE (07:33)
[2018-02-25] MEDS ORDERED: MIDAZOLAM 2 MG/2 ML VIAL ONE (07:33)
[2018-02-25] MEDS ORDERED: GLYCOPYRROLATE 0.2 MG/ML 2 ML VIAL ONE (07:33)
[2018-02-25] MEDS ORDERED: PROPOFOL 10 MG/ML 20 ML VIAL IV ONE (07:33)
[2018-02-25] MEDS ORDERED: LIDOCAINE 1% INJ 10MG/ML (20 ML MDV) ONE (07:33)
[2018-02-25] MEDS ORDERED: fentaNYL (PF) 50 MCG/ML 2 ML AMP ONE (07:33)
[2018-02-25] MEDS ORDERED: ROCURONIUM BROMIDE 10 MG/ML 10 ML VIAL IV ONE (07:33)
[2018-02-25] MEDS ORDERED: LACTATED RINGERS 1,000 ML IV ONE (07:47)
[2018-02-25] MEDS ORDERED: ONDANSETRON 4 MG/2 ML VIAL IVP PRN (09:02)
[2018-02-25] MEDS ORDERED: Acetaminophen-Codeine 300-30mg TAB PO PRN (09:02)
[2018-02-25] MEDS ORDERED: SIMETHICONE 80 MG CHEWABLE PO PRN (09:02)
[2018-02-25] MEDS ORDERED: ROPIVACAINE 5 MG/ML 30 ML VIAL MISCELLANE ONE (09:03)
--- NOTE | 2018-02-25 09:09 | P.OP ---
Date of Procedure: 02/25/18 Preoperative Diagnosis: Postmenopausal bleeding Postoperative Diagnosis: Same with peritoneal mass Procedure(s) Performed: Robotic-assisted laparoscopic hysterectomy with excisional biopsy of peritoneal mass Anesthesia: BRIAN Surgeon: Raphael Marcus Track Layer Head #1: Sangita Zapata Estimated Blood Loss (ml): 10 IV fluids (ml): 900 Urine output (ml): 100 Pathology: other (Uterus, cervix, and peritoneal mass) Condition: stable Disposition: floor Operative Findings: Approximately a 2 cm peritoneal mass was noted and excised from the left adnexal region adjacent to the bladder Description of Procedure: Patient was taken to the operating suite where a general anesthetic was found be adequate. She was prepped and draped in the normal sterile fashion placed in dorsal lithotomy position. Initially a weighted speculum was inserted into the vagina and anterior lip of the cervix was identified and grasped with a single-tooth tenaculum. Uterus was then sounded to 9 cm and the cup size was better to 3.5 cm. Sutures were placed at 3 and 9 for assistance in removal of the uterus. Sumi manipulator was then inserted without difficulty and maximal Ascent was noted. Villagomez cath was then placed other instruments were removed from the vagina. Gloves were changed and attention was turned to the abdominal portion procedure where 3 mL of quarter percent Marcaine was injected periumbilically. Through this injected anesthetic a 5 mm skin incision was made and through this incision under direct visualization with an optical trocar and sleeve the camera was inserted. Once peritoneal placement was assured gas was allowed to fully insufflate the abdomen and patient's placement steep Trendelenburg position. Once this was accomplished 2 lateral ports were placed proxy 10 cm lateral to the umbilicus and a fourth port and sleeve were inserted 31 cm incision between the left lateral and medial ports. At this point robot was brought in and docked once fully docked a [place] was placed in the one arm and a scissor and the 2 arm and I broke scrub to go to the console. Observations pelvis were noted there was a approximately 2 cm elliptical what appeared to be fatty tumor adjacent to the bladder that was grasped and elevated it was firm in density and was therefore excised using the scissor and cautery and was then removed in total. Once is accomplished uterus was anteverted and tipped to the right-hand side utero-ovarian ligament was identified cauterized and ligated fallopian tube was then identified cauterized and ligated mesosalpinx tissues were cauterized and ligated to the round ligament. Round blade was then cauterized ligated and the anterior posterior leafs the broad ligament were fully developed. Cauterization of the uterine vascularity on the left side of the uterus was then accomplished. Undermining the bladder flap this point was done by using the [place] undermining the tissue and the scissor to incise across face uterus. Bladder flap was then fully created and bladder was dissected out of the operative field. Right side of the uterus was then fully developed by anteverting uterus and tipping into the left-hand side. This was done in a similar fashion. Once both right and left uterine vascularity was cauterized anterior colpotomy was made using the scissor across the from the vagina following the cup. Moving in a counterclockwise fashion at this point cheating head when necessary to maintain excellent hemostasis the cup was called and a 360 fashion until the cervix and vagina were . Uterus was then pushed down into the vagina to maintain pneumoperitoneum. Once this was accomplished any bleeding was cauterized and excellent hemostasis was noted from the pedicles. Instruments were then exchanged for a cardia grasper and a make suture cut and using to OB lock suture the vaginal cuff was closed. Once this was accomplished instruments were removed and gas was allowed to expel from the abdomen. 5 deep breaths performed provided during this process. I did re-scrub in and did a cystoscopy with good flow noted from both ureteral jets and Dr. Zapata close the incision subcuticularly and then injected around the incisions with local anesthetic. Sponge, lap, needle counts were all correct 2. Patient was then taken to the recovery room in stable and satisfactory condition.
[2018-02-25 09:47] VITALS: RESP 16
[2018-02-25] MEDS: Acetaminophen-Codeine 300-30mg TAB PO PRN ×2 (13:00→19:25)
[2018-02-25] MEDS: KETOROLAC 30 MG/ML 1 ML VIAL IVP PRN ×2 (15:27→22:36)
[2018-02-25] MEDS ORDERED: SUMAtriptan SUCCINATE 50 MG TAB PO STA (19:54)
[2018-02-25] MEDS: SENNOSIDES-DOCUSATE SODIUM 1 EACH TAB PO SCH (23:41)
[2018-02-26] MEDS: LACTATED RINGERS 1,000 ML IV SCH (00:36)
[2018-02-26 03:44] VITALS: TEMP 97.9
[2018-02-26] MEDS ORDERED: IBUPROFEN 600 MG TAB PO PRN (09:07)
[2018-02-26] MEDS: SENNOSIDES-DOCUSATE SODIUM 1 EACH TAB PO SCH (09:20)
--- NOTE | 2018-02-26 09:24 | P.DS ---
Providers Date of admission: 02/25/18 20:13 Expected date of discharge: 02/26/18 Attending physician: Raphael Marcus Primary care physician: Wil Paris [facility] Course: Grecia is doing very well postop day 1. She is involuting, voiding, and she is tolerating her diet. She voices no complaints. Vital signs are stable and afebrile. Heart regular, lungs clear, extremities without pain. Incisions are intact. She is passing flatus and has bowel sounds. Assessment post op day 1. Plan discharged home follow up with me in 1 week. Prescription for Tylenol 3 and Motrin been provided. All discharge discharge instructions were reviewed with patient in detail and all questions are answered for her prior to her discharge. She is stable for discharge at this time. Patient Condition at Discharge: Good Plan - Discharge Summary Discharge Rx Participant: Yes New Discharge Prescriptions: New Acetaminophen-Codeine 300-30mg [Tylenol #3] 1 tab PO Q4H PRN #30 tablet PRN Reason: Pain Ibuprofen [Motrin] 600 mg PO Q6HR PRN #30 tab PRN Reason: Pain No Action SUMAtriptan SUCCINATE [Sumatriptan Succinate] 100 mg PO DAILY PRN PRN Reason: Migraine Headache Citalopram Hydrobromide [Citalopram HBr] 40 mg PO HS Methimazole [Tapazole] 2.5 mg PO Q48H Ibuprofen [Motrin] 600 mg PO Q6HR PRN #30 tab PRN Reason: Pain Methimazole [Tapazole] 5 mg PO Q48H Discharge Medication List SUMAtriptan SUCCINATE [Sumatriptan Succinate] 100 mg PO DAILY PRN 01/05/17 [ History] Citalopram Hydrobromide [Citalopram HBr] 40 mg PO HS 10/14/17 [History] Methimazole [Tapazole] 2.5 mg PO Q48H 11/23/17 [History] Ibuprofen [Motrin] 600 mg PO Q6HR PRN #30 tab 11/26/17 [Rx] Methimazole [Tapazole] 5 mg PO Q48H 02/22/18 [History] Acetaminophen-Codeine 300-30mg [Tylenol #3] 1 tab PO Q4H PRN #30 tablet [Rx] Ibuprofen [Motrin] 600 mg PO Q6HR PRN #30 tab 02/26/18 [Rx] Follow up Appointment(s)/Referral(s): Raphael Marcus DO [Doctor of Osteopathic Medicine] - 1 Week Activity/Diet/Wound Care/Special Instructions: No heavy lifting, limit stairs and driving, and pelvic rest. If any high temperatures, heavy bleeding, or severe pain call my office Discharge Disposition: HOME SELF-CARE
[2018-02-26 12:11] VITALS: BP 114/72; PULSE 88
== END 2018-02-26 10:30 | disposition home or self-care (01) ==
LOC: OR 05:40 → 4FBP 09:18 → OR 20:13
PROVIDERS: ADMIT Obstetrics & Gynecology; ATTEND Obstetrics & Gynecology
DX: N80.0 Endometriosis of uterus (principal); N95.0 Postmenopausal bleeding; K65.4 Sclerosing mesenteritis; E28.39 Other primary ovarian failure; N84.0 Polyp of corpus uteri; K21.9 Gastro-esophageal reflux disease without esophagitis; E07.9 Disorder of thyroid, unspecified; I83.90 Asymptomatic varicose veins of unspecified lower extremity; G43.909 Migraine, unspecified, not intractable, without status migrainosus; F17.200 Nicotine dependence, unspecified, uncomplicated; Z90.89 Acquired absence of other organs; Z87.442 Personal history of urinary calculi; Z82.49 Family history of ischemic heart disease and other diseases of the circulatory system; Z79.899 Other long term (current) drug therapy; Z88.1 Allergy status to other antibiotic agents; Z88.8 Allergy status to other drugs, medicaments and biological substances
CPT/HCPCS: 49329; 58550; S2900; 81025; 86850; 86900; 86901; 88305; 88307

== ENCOUNTER → 2018-03-01 | Outpatient (CLI) | payer OTHER ==
[2018-03-01 15:15] LABS: T4, Free (Free Thyroxine) 0.88 ng/dL (0.78-2.19)
== END | disposition home or self-care (01) ==
LOC: LABWHC1 13:24
PROVIDERS: ATTEND Internal Medicine Endocrinology, Diabetes & Metabolism
DX: E05.90 Thyrotoxicosis, unspecified without thyrotoxic crisis or storm (principal)
CPT/HCPCS: 36415; 84439; 84443; 84480

== ENCOUNTER 2018-04-13 21:15 | Emergency (ER) | payer OTHER ==
[2018-04-13 21:31] VITALS: BP 114/73; TEMP 97.7
[2018-04-13] MEDS ORDERED: IPRATROPIUM-ALBUTEROL 3 ML NEB INHALATION STA (22:01)
[2018-04-13] MEDS ORDERED: predniSONE 10 MG TAB PO STA (22:02)
--- NOTE | 2018-04-13 22:06 | XR ---
EXAMINATION TYPE: XR chest 2V DATE OF EXAM: 04/13/2018 COMPARISON: 11/27/2016 HISTORY: 37-year-old female with cough and congestion, pain TECHNIQUE: PA and lateral views FINDINGS: The cardiomediastinal silhouette, aorta, and pulmonary vasculature are within normal limits. Mild dif fuse interstitial prominence. No consolidation or pleural effusion. IMPRESSION: Interstitial prominence could represent bronchitis or chronic asthma. No focal infiltrate seen.
[2018-04-13] MEDS ORDERED: ALBUTEROL NEBULIZED 2.5 MG/3 ML INHALATION STA ×2 (22:08→22:43)
--- NOTE | 2018-04-13 22:08 | ED ---
URI HPI - General Chief Complaint: Upper Respiratory Infection Stated Complaint: cold/congestion Time Seen by Provider: 04/13/18 21:33 Source: patient Mode of arrival: ambulatory Limitations: no limitations - History of Present Illness Initial Comments: This a 37-year-old female with past medical history of present today for chief complaint of cough and wheeze 6 days. Patient states that she had been sneezing, had dry cough and also low-grade fever. Thursday she called the work today symptoms. As the weekend progressed she felt as if she could hear wheezing, but no longer had a low grade fever. In addition she admitted congestion, some chest tightness and body aches. Patient does not have history of asthma and denies history of COPD however she is a daily smoker of half pack per day. Patient states that last year she had similar symptoms and was diagnosed with walking pneumonia. Upon arrival to the emergency room today patient's vital signs stable oxygen saturation 100% room air, afebrile. - Related Data Home Medications Medication Instructions Recorded Confirmed SUMAtriptan SUCCINATE [Sumatriptan 100 mg PO DAILY PRN 01/05/17 02/22/18 Succinate] Citalopram Hydrobromide 40 mg PO HS 10/14/17 02/25/18 [Citalopram HBr] Methimazole [Tapazole] 2.5 mg PO Q48H 11/23/17 02/25/18 Methimazole [Tapazole] 5 mg PO Q48H 02/22/18 02/25/18 Previous Rx's Medication Instructions Recorded Ibuprofen [Motrin] 600 mg PO Q6HR PRN #30 tab 11/26/17 Acetaminophen-Codeine 300-30mg 1 tab PO Q4H PRN #30 tablet 02/26/18 [Tylenol #3] Ibuprofen [Motrin] 600 mg PO Q6HR PRN #30 tab 02/26/18 Albuterol Inhaler [Ventolin Hfa 1 - 2 puff INHALATION RT-Q6H PRN 5 04/13/18 Inhaler] Days #1 inhaler Azithromycin 250 mg PO DAILY 4 Days #4 tablet 04/13/18 predniSONE 20 mg PO DAILY 4 Days #4 tab 04/13/18 Allergies Allergy/AdvReac Type Severity Reaction Status Date / Time prochlorperazine Allergy Unknown Rash/Hives Verified 04/13/18 21:31 [From Compazine] prochlorperazine edisylate Allergy Unknown Rash/Hives Verified 04/13/18 21:31 [From Compazine] doxycycline Allergy Rash/Hives Verified 04/13/18 21:31 pseudoephedrine HCl Allergy Rash/Hives Verified 04/13/18 21:31 [From Sudafed] sertraline HCl [From Zoloft] Allergy Rash/Hives Verified 04/13/18 21:31 Review of Systems ROS Statement: Those systems with pertinent positive or pertinent negative responses have been documented in the HPI. ROS Other: All systems not noted in ROS Statement are negative. Constitutional: Reports: fever. Denies: chills, night sweats Eyes: Denies: eye discharge ENT: Denies: ear pain, throat pain Respiratory: Reports: cough, wheezes. Denies: dyspnea, hemoptysis, stridor Cardiovascular: Denies: chest pain, palpitations, edema, syncope Endocrine: Denies: fatigue Gastrointestinal: Denies: abdominal pain, nausea, vomiting Genitourinary: Denies: urgency, dysuria Skin: Denies: rash, lesions Neurological: Denies: headache, weakness, numbness, paresthesias, confusion Past Medical History Past Medical History: Neurologic Disorder, Thyroid Disorder Additional Past Medical History / Comment(s): ,left shoulder pain, kidney stones ,migraines History of Any Multi-Drug Resistant Organisms: None Reported Past Surgical History: Hysterectomy Additional Past Surgical History / Comment(s): BILAT inguinal hernia repair with mesh,kidney stone removal Past Anesthesia/Blood Transfusion Reactions: No Reported Reaction Additional Past Anesthesia/Blood Transfusion Reaction / Comment(s): no hx blood transfusion Past Psychological History: Anxiety Smoking Status: Current every day smoker Past Alcohol Use History: Occasional Past Drug Use History: None Reported - Past Family History Mother Additional Family Medical History / Comment(s): . Father Additional Family Medical History / Comment(s): heart problems,aneurysm General Exam - General Exam Comments Initial Comments: General: The patient is awake and alert, in no distress, and does not appear acutely ill. Eye: Pupils are equal, round and reactive to light, extra-ocular movements are intact. No nystagmus. There is normal conjunctiva bilaterally. No signs of icterus. Ears, nose, mouth and throat: There are moist mucous membranes and no oral lesions. Oropharygnx non erythematous, uvula midline, no anterior cervical lymphadenopathy. Neck: The neck is supple, there is no tenderness or JVD. Cardiovascular: There is a regular rate and rhythm. No murmur, rub or gallop is appreciated. Respiratory: Inspiratory wheeze in upper lung [place], no expiratory wheeze, no crackles, stridor, rhonchi or rales. No egophony, or tactile fremitus. respirations are non-labored, breath sounds are equal. There is no use of accessory muscles, cyanosis, or intercostal retractions. Musculoskeletal: Normal ROM, no tenderness. Strength 5/5. Sensation intact. Pulses equal bilaterally 2+. Neurological: A&O x 3. CN II-XII intact, There are no obvious motor or sensory deficits. Coordination appears grossly intact. Speech is normal. Skin: Skin is warm and dry and no rashes or lesions are noted. Psychiatric: Cooperative, appropriate mood & affect, normal judgment. Limitations: no limitations Course Vital Signs 04/13/18 04/13/18 04/13/18 21:29 22:17 22:29 Temperature 97.7 F Pulse Rate 80 70 76 Respiratory 18 16 16 Rate Blood Pressure 114/73 O2 Sat by Pulse 100 Oximetry 04/13/18 04/13/18 23:12 23:22 Temperature Pulse Rate 78 78 Respiratory Rate Blood Pressure O2 Sat by Pulse Oximetry Medical Decision Making - Medical Decision Making Pt VS stable afebrile, 100% O2 Sat on RA, HR WNL. Given hx of smoking and physical examination findings of inspiratory wheeze pt was given 1 neb albuterol treatment, pt stated that she has tolerated it in the past, and prednisone 30mg. This decreased the wheeze significantly. Pt stated her breathing felt better. Pt was given second albuterol nebulizer and stated she felt significantly better, no longer experiencing any tightness in her chest. Wheeze was absent on reevaluation. CXR obtained revealed evidence for bronchitis , questionable for possible early consolidation. Pt was treated ppx as for outpatient pneumonia with 1x dose 500mg azithromycin in ED. Then RX for 250mg daily x4 days, prednisone 20mg daily x4 days and ventolin inhaler. Pt agreed with plan and case was discussed in detail with Dr. Duque who agreed with impression and plan. Pt was discharged in stable condition, with PCP in 1-2 days. Pt denied questions at this time.Pt was told to return to the ED for worsening symptoms including fever, nightsweats, worsening cough, productive cough, rigors-pt verbally agreed. Disposition Clinical Impression: Bronchitis Disposition: HOME SELF-CARE Condition: Good Instructions: Acute Bronchitis (ED) Additional Instructions: Please use medication as discussed. Please follow-up with family doctor in the next 2 days.Please return to emergency room if the symptoms increase or worsen or for any other concerns. Prescriptions: Albuterol Inhaler [Ventolin Hfa Inhaler] 1 - 2 puff INHALATION RT-Q6H PRN 5 Days #1 inhaler PRN Reason: Wheezing Azithromycin 250 mg PO DAILY 4 Days #4 tablet predniSONE 20 mg PO DAILY 4 Days #4 tab Is patient prescribed a controlled substance at d/c from ED?: No Referrals: Wil Paris MD [Primary Care Provider] - 1-2 days Time of Disposition: 23:36
[2018-04-13 22:20] VITALS: RESP 16
[2018-04-13 23:12] VITALS: PULSE 78
[2018-04-13] MEDS ORDERED: AZITHROMYCIN 500 MG TAB PO STA (23:21)
== END 2018-04-13 23:53 | disposition home or self-care (01) ==
LOC: EC 21:15
DX: J40 Bronchitis, not specified as acute or chronic (principal); F41.9 Anxiety disorder, unspecified; F17.210 Nicotine dependence, cigarettes, uncomplicated; Z79.899 Other long term (current) drug therapy; Z88.1 Allergy status to other antibiotic agents; Z88.8 Allergy status to other drugs, medicaments and biological substances
CPT/HCPCS: 94640 ×2; 71046; 99283; J7512

== ENCOUNTER → 2018-07-06 | Outpatient (CLI) | payer OTHER | END | disposition home or self-care (01) | LOC: LABWHC1 16:28 | PROVIDERS: ATTEND Internal Medicine Endocrinology, Diabetes & Metabolism | DX: E05.90 Thyrotoxicosis, unspecified without thyrotoxic crisis or storm (principal) | CPT/HCPCS: 36415; 84439; 84443; 84480 ==

== ENCOUNTER 2018-07-22 07:44 | Day surgery (SDC) | payer OTHER ==
[2018-07-15 15:56] VITALS: BMI 25.0
[~2018-07-22 07:44] MED LIST changes: +DEXAMETHASONE SOD PHOSPHATE 10 MG/ML 1 ML VIAL IV ONE; +HEPARIN SODIUM,PORCINE 5,000 UNIT/ML 1 ML VIAL SQ ONE; +HYDROmorphone 0.5 MG/0.5 ML SYRINGE IVP PRN; +LACTATED RINGERS 1,000 ML IV SCH; +MORPHINE SULFATE 4 MG/ML SYRINGE IV PRN; +ONDANSETRON 4 MG/2 ML VIAL IVP ONE; +ONDANSETRON 4 MG/2 ML VIAL IVP PRN
[2018-07-22 08:28] LABS: Glucose,Whole Blood 86 mg/dL (75-99)
[2018-07-22] MEDS ORDERED: LIDOCAINE 1% 20 ML VIAL (10MG/ML) FOR IV START INTRADERMA ONE (08:28)
--- NOTE | 2018-07-22 08:50 | P.GSHP ---
History of Present Illness H&P Date: 07/22/18 Chief Complaint: Right upper quadrant pain This is a 37-year-old female presents today for laparoscopic cholestatic. Patient returned quadrant pain. He was a HIDA scan shows abnormal ejection fraction consistent with chronic cholecystitis. Past Medical History Past Medical History: Neurologic Disorder, Thyroid Disorder Additional Past Medical History / Comment(s): Hx of kidney stones,migraines, recent allergic reation/ on prednisone for 5 days History of Any Multi-Drug Resistant Organisms: None Reported Past Surgical History: Hernia Repair, Hysterectomy, Tonsillectomy Additional Past Surgical History / Comment(s): EGD; kidney stone removal Past Anesthesia/Blood Transfusion Reactions: No Reported Reaction Additional Past Anesthesia/Blood Transfusion Reaction / Comment(s): no hx blood transfusion Smoking Status: Current every day smoker - Past Family History Mother Family Medical History: No Reported History Additional Family Medical History / Comment(s): . Father Additional Family Medical History / Comment(s): heart problems,aneurysm Medications and Allergies Home Medications Medication Instructions Recorded Confirmed Type SUMAtriptan SUCCINATE [Sumatriptan 100 mg PO DAILY PRN 01/05/17 07/22/18 History Succinate] Citalopram Hydrobromide 40 mg PO HS 10/14/17 07/22/18 History [Citalopram HBr] Methimazole [Tapazole] 5 mg PO DAILY 02/22/18 07/22/18 History Ibuprofen [Motrin] 600 mg PO Q6HR PRN #30 tab 02/26/18 07/15/18 Rx Vitamin C/Biotin [Hair, Skin and 1 tab PO DAILY 06/24/18 07/15/18 History Nails] Cetirizine HCl 10 mg PO DAILY 07/15/18 07/15/18 History predniSONE 10 mg PO BID 07/15/18 07/22/18 History Allergies Allergy/AdvReac Type Severity Reaction Status Date / Time prochlorperazine Allergy Unknown Rash/Hives Verified 07/15/18 15:48 [From Compazine] prochlorperazine edisylate Allergy Unknown Rash/Hives Verified 07/15/18 15:48 [From Compazine] doxycycline Allergy Rash/Hives Verified 07/15/18 15:48 pseudoephedrine HCl Allergy Rash/Hives Verified 07/15/18 15:48 [From Sudafed] sertraline HCl [From Zoloft] Allergy Rash/Hives Verified 07/15/18 15:48 Surgical - Exam Vital Signs Temp Pulse Resp BP Pulse Ox 97.4 F L 79 18 109/73 99 07/22/18 08:18 07/22/18 08:18 07/22/18 08:18 07/22/18 08:18 07/22/18 08:18 - General well developed, no distress - Eyes PERRL - ENT normal pinna - Neck no masses - Respiratory normal expansion - Cardiovascular Rhythm: regular - Abdomen Abdomen: soft, non tender Assessment and Plan Assessment: Right upper quadrant pain Choledocholithiasis We'll perform laparoscopic cholecystectomy.
[2018-07-22] MEDS ORDERED: PROPOFOL 10 MG/ML 20 ML VIAL IV ONE (09:10)
[2018-07-22] MEDS ORDERED: fentaNYL (PF) 50 MCG/ML 2 ML AMP ONE (09:10)
[2018-07-22] MEDS ORDERED: MIDAZOLAM 2 MG/2 ML VIAL ONE (09:10)
[2018-07-22] MEDS ORDERED: SUCCINYLCHOLINE CHLORIDE 100 MG/5 ML SYR IV ONE (09:10)
[2018-07-22] MEDS ORDERED: GLYCOPYRROLATE 0.2 MG/ML 2 ML VIAL ONE (09:10)
[2018-07-22] MEDS ORDERED: VECURONIUM 10 MG VIAL IV ONE (09:10)
[2018-07-22] MEDS ORDERED: NEOSTIGMINE 1 MG/ML 10 ML VIAL ONE (09:10)
[2018-07-22] MEDS ORDERED: LIDOCAINE 1% INJ 10MG/ML (20 ML MDV) ONE (09:10)
[2018-07-22] MEDS ORDERED: BUPIVACAIN-EPI 0.25%-1:200,000 30 ML VIAL SQ ONE (09:40)
[2018-07-22] MEDS ORDERED: LACTATED RINGERS 1,000 ML IV ONE (09:49)
[2018-07-22 10:14] VITALS: TEMP 97.8
--- NOTE | 2018-07-22 10:24 | P.OP ---
Date of Procedure: 07/22/18 Preoperative Diagnosis: Cholecystitis Postoperative Diagnosis: Cholecystitis Procedure(s) Performed: Laparoscopic cholecystectomy Anesthesia: BRIAN Surgeon: Daniel Vann Estimated Blood Loss (ml): 5 Pathology: other (Gallbladder) Condition: stable Disposition: PACU Description of Procedure: The patient was placed on the operating table. The patient received a general endotracheal tube anesthesia. The patients abdomen was prepped and draped in the usual sterile fashion. Through an infraumbilical stab incision, the fascia of the anterior abdominal wall was grasped with a pair of Kochers and then the Veress needle was placed in the peritoneal cavity. Position of the Veress needle was confirmed with positive drop test. The abdomen was then insufflated. After adequate insufflation, the 10 mm trocar was placed in the peritoneal cavity. Following this the laparoscope was placed in the peritoneal cavity. The patient was placed in the head-up, right side up position and then a 5 mm trocar was placed in the right lateral and right subcostal position under direct visualization. A 8 mm trocar was placed in the epigastric position. The gallbladder was grasped in the fundus and infundibulum. Traction on the gallbladder was placed in the lateral and the cephalad positions. The triangle of Calot was visualized.. The cystic duct was bluntly dissected until the union of the cystic duct and common bile duct was seen. The cystic duct was then divided and sealed with the Harmonic scissors. A PDS Endoloop was then placed throughout the cystic duct stump. The cystic artery divided and sealed with the Harmonic scissors. The gallbladder was then removed from the liver bed using Harmonic scissors. The gallbladder was then extracted through the epigastric port site. Operative field was checked for any bleeding spots and Harmonic scissors was used to coagulate the liver bed. The abdomen was irrigated. The trocars were removed. The skin was closed using interrupted 3-0 Vicryl suture. Dermabond dressing were applied. The patient tolerated the procedure well.
[2018-07-22] MEDS ORDERED: ONDANSETRON 4 MG/2 ML VIAL IVP ONE (11:12)
[2018-07-22 11:57] VITALS: RESP 16
[2018-07-22 12:25] VITALS: BP 117/76; PULSE 79
== END 2018-07-22 12:45 | disposition home or self-care (01) ==
LOC: OR 07:44
PROVIDERS: ATTEND Surgery
DX: K80.44 Calculus of bile duct with chronic cholecystitis without obstruction (principal); F17.200 Nicotine dependence, unspecified, uncomplicated; G43.909 Migraine, unspecified, not intractable, without status migrainosus; Z79.52 Long term (current) use of systemic steroids; Z79.899 Other long term (current) drug therapy; Z88.8 Allergy status to other drugs, medicaments and biological substances; Z88.1 Allergy status to other antibiotic agents; Z87.442 Personal history of urinary calculi
CPT/HCPCS: 88304; 47562; J2250; J1644; J1100; J2710; J2405; J2001; J3010; J0330; J2704; J0690

== ENCOUNTER → 2018-10-07 | Outpatient (CLI) | payer OTHER ==
[2018-10-07 18:09] LABS: T4, Free (Free Thyroxine) 0.82 ng/dL (0.78-2.19)
--- NOTE | 2018-10-08 14:48 | US ---
EXAMINATION TYPE: US thyroid st tissue head/neck DATE OF EXAM: 10/07/2018 COMPARISON: US CLINICAL HISTORY: Thyroid nodule E04.1. GLAND SIZE: Right Lobe: 4.2 x 1.8 x 1.6 cm Overall Parenchyma: homogenous Left Lobe: 5.3 x 1.5 x 1.6 cm Overall Parenchyma: homogeneous Isthmus Thickness: 0.3 cm NODULES RIGHT: # of nodules measured on right: 0 LEFT: # of nodules measured on left: 0 ISTHMUS: # of nodules measured in the isthmus: 1 1. 1.4 X 0.8 x 1.1 cm hypoechoic mixed nodule at the rt isthmus pole with well-defined margins; . This nodule is wider than tall and shows intranodular vascularity. Prior size: 1.3 x 0.7 x 1.2 cm Bilateral neck scanned, no evidence of lymphadenopathy. Nodule as described. IMPRESSION: 1. Essentially stable nodule within the right portion of the isthmus of thyroid.
== END ==
LOC: RADUSWWP 16:23
PROVIDERS: ATTEND Internal Medicine Endocrinology, Diabetes & Metabolism
DX: E04.1 Nontoxic single thyroid nodule (principal); E05.90 Thyrotoxicosis, unspecified without thyrotoxic crisis or storm
CPT/HCPCS: 36415; 76536; 84439; 84443; 84480

== ENCOUNTER → 2019-02-07 | Outpatient (CLI) | payer OTHER ==
[2019-02-08 00:06] LABS: T4, Free (Free Thyroxine) 0.9 ng/dL (0.80-1.80)
== END | disposition home or self-care (01) ==
LOC: LABWHC1 15:28
PROVIDERS: ATTEND Internal Medicine Endocrinology, Diabetes & Metabolism
DX: E05.90 Thyrotoxicosis, unspecified without thyrotoxic crisis or storm (principal)
CPT/HCPCS: 36415; 84439; 84443; 84480

== ENCOUNTER → 2019-08-23 | Outpatient (CLI) | payer OTHER ==
--- NOTE | 2019-08-24 09:14 | US ---
EXAMINATION TYPE: US pelvic complete DATE OF EXAM: 08/23/2019 COMPARISON: NONE CLINICAL HISTORY: R10.32 left lower quadrant pain. TECHNIQUE: Transvaginal (TV) and Transabdominal (TA) . Transabdominal sonographic images of the pel vis were acquired. Transvaginal sonographic images were medically necessary to better assess the fol lowing anatomy: ovaries Date of LMP: Hysterectomy approximately 1 year prior EXAM MEASUREMENTS: Uterus: Surgically absent Endometrial Stripe: Surgically absent Right Ovary: obscured by overlying bowel gas Left Ovary: obscured by overlying bowel gas 1. Uterus: Surgically absent 2. Endometrium: Surgically absent 3. Right Ovary: obscured by overlying bowel gas 4. Left Ovary: obscured by overlying bowel gas 5. Bilateral Adnexa: wnl 6. Posterior cul-de-sac: wnl IMPRESSION: 1. Limited examination due to bowel gas. 2. No suspicious acute pelvic changes.
== END | disposition home or self-care (01) ==
LOC: RADUSWWP 14:51
PROVIDERS: ATTEND Family Medicine
DX: R14.3 Flatulence (principal); Z88.1 Allergy status to other antibiotic agents; Z88.2 Allergy status to sulfonamides; Z88.6 Allergy status to analgesic agent; Z88.8 Allergy status to other drugs, medicaments and biological substances
CPT/HCPCS: 76830; 76856

== ENCOUNTER → 2019-08-23 | Outpatient (CLI) | payer OTHER | END | disposition home or self-care (01) | LOC: LABWHC1 15:18 | PROVIDERS: ATTEND Internal Medicine Endocrinology, Diabetes & Metabolism | DX: C73 Malignant neoplasm of thyroid gland (principal) | CPT/HCPCS: 36415; 84432; 84443; 86800 ==

== ENCOUNTER → 2019-10-27 | Outpatient (CLI) | payer OTHER | END | disposition home or self-care (01) | LOC: LABWHC1 14:55 | PROVIDERS: ATTEND Internal Medicine Endocrinology, Diabetes & Metabolism | DX: E89.0 Postprocedural hypothyroidism (principal) | CPT/HCPCS: 36415; 84443 ==

== ENCOUNTER → 2019-12-16 | Outpatient (CLI) | payer OTHER | END | disposition home or self-care (01) | LOC: LABWHC1 09:30 | PROVIDERS: ATTEND Internal Medicine Endocrinology, Diabetes & Metabolism | DX: E89.0 Postprocedural hypothyroidism (principal) | CPT/HCPCS: 36415; 84443 ==

== ENCOUNTER → 2020-01-17 | Outpatient (CLI) | payer OTHER ==
[2020-01-17 19:42] LABS: T4, Free (Free Thyroxine) 0.3 ng/dL (0.80-1.80)
== END | disposition home or self-care (01) ==
LOC: LABWHC1 14:37
PROVIDERS: ATTEND Internal Medicine Endocrinology, Diabetes & Metabolism
DX: C73 Malignant neoplasm of thyroid gland (principal); E03.8 Other specified hypothyroidism
CPT/HCPCS: 36415; 84432; 84439; 84443; 84480; 86800

== ENCOUNTER 2020-03-05 06:57 | Emergency (ER) | payer OTHER ==
[2020-03-05] MEDS ORDERED: KETOROLAC 60 MG/2 ML VIAL IM STA (07:32)
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
--- NOTE | 2020-03-05 08:05 | XR ---
Cervical spine HISTORY: Pain 3 views of the cervical spine There is straightening of the normal cervical lordosis. Cervical vertebral bodies show preserved heig ht and alignment. Disc spaces are maintained. Vertebral soft tissues are normal. IMPRESSION: Normal cervical spine. Loss of cervical lordosis can be seen with muscle spasm.
[2020-03-05] MEDS ORDERED: ACET/COD 300 MG/30 MG STARTER PACK 6 TAB BTL PO STA (08:12)
[2020-03-05 08:21] VITALS: BP 98/72; PULSE 80; RESP 16; TEMP 98.7
== END 2020-03-05 08:24 | disposition home or self-care (01) ==
LOC: EC 06:57
DX: S16.1XXA Strain of muscle, fascia and tendon at neck level, initial encounter (principal); E07.9 Disorder of thyroid, unspecified; F41.9 Anxiety disorder, unspecified; Z79.890 Hormone replacement therapy; Z79.899 Other long term (current) drug therapy; F17.200 Nicotine dependence, unspecified, uncomplicated; Z88.8 Allergy status to other drugs, medicaments and biological substances; Z88.1 Allergy status to other antibiotic agents; X58.XXXA Exposure to other specified factors, initial encounter
CPT/HCPCS: 72040; 99283; 96372; J1885

== ENCOUNTER 2020-03-08 07:44 | Emergency (ER) | payer OTHER ==
[2020-03-08] MEDS ORDERED: METOCLOPRAMIDE 5 MG/ML 2 ML VIAL IVP STA (07:59)
[2020-03-08] MEDS ORDERED: diphenhydrAMINE 50 MG/ML 1 ML VIAL IVP STA (07:59)
[2020-03-08] MEDS ORDERED: ORPHENADRINE 30 MG/ML 2 ML VIAL IVP STA (07:59)
[2020-03-08] MEDS ORDERED: methylPREDNISolone SOD SUCCI 125 MG/2 ML VIAL IV STA (07:59)
[2020-03-08] MEDS ORDERED: KETOROLAC 30 MG/ML 1 ML VIAL IVP STA ×2 (07:59→08:02)
[2020-03-08] MEDS ORDERED: SODIUM CHLORIDE 0.9% 1,000 ML IV STA (07:59)
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
--- NOTE | 2020-03-08 08:31 | CT ---
EXAMINATION TYPE: CT brain wo con DATE OF EXAM: 03/08/2020 COMPARISON: 02/26/2016 HISTORY: Headache CT DLP: 1099.4 mGycm. Automated Exposure Control for Dose Reduction was Utilized. TECHNIQUE: CT scan of the head is performed without contrast. FINDINGS: There is no acute intracranial hemorrhage, mass effect, or midline shift identified. The ventricles and sulci are within normal limits in size. Cerebellar tonsils are low-lying in position recommend follow-up MRI to assess for Chiari malformation. IMPRESSION: 1. No acute intracranial hemorrhage, mass effect, or midline shift is seen. 2. Low-lying cerebellar tonsils. Recommend follow-up MRI to assess for Chiari malformation.
[2020-03-08 09:15] VITALS: BP 113/77; PULSE 85; RESP 17; TEMP 96.5
[2020-03-08] MEDS ORDERED: ONDANSETRON 4 MG ODT STARTER PACK 2 TAB BTL PO STA (09:22)
== END 2020-03-08 09:26 | disposition home or self-care (01) ==
LOC: EC 07:44
DX: S16.1XXA Strain of muscle, fascia and tendon at neck level, initial encounter (principal); G43.909 Migraine, unspecified, not intractable, without status migrainosus; F41.9 Anxiety disorder, unspecified; F17.200 Nicotine dependence, unspecified, uncomplicated; Z85.850 Personal history of malignant neoplasm of thyroid; Z79.890 Hormone replacement therapy; Z79.899 Other long term (current) drug therapy; Z88.8 Allergy status to other drugs, medicaments and biological substances; Z88.1 Allergy status to other antibiotic agents; Z53.29 Procedure and treatment not carried out because of patient's decision for other reasons
CPT/HCPCS: 70450; 99284; 96374; 96375 ×4; 96361; J1200; J2360; J2765; J2930; J1885; S0119

== ENCOUNTER → 2020-03-22 | Outpatient (CLI) | payer OTHER ==
[2020-03-22 18:56] LABS: T4, Free (Free Thyroxine) 1.3 ng/dL (0.80-1.80)
== END | disposition home or self-care (01) ==
LOC: LABWHC1 11:28
PROVIDERS: ATTEND Internal Medicine Endocrinology, Diabetes & Metabolism
DX: C73 Malignant neoplasm of thyroid gland (principal); E03.8 Other specified hypothyroidism
CPT/HCPCS: 36415; 84432; 84439; 84443; 84480; 86800

== ENCOUNTER → 2020-07-18 | Outpatient (CLI) | payer OTHER ==
--- NOTE | 2020-07-19 05:08 | US ---
EXAMINATION TYPE: US thyroid st tissue head/neck DATE OF EXAM: 07/18/2020 COMPARISON: US 10/07/2018 CLINICAL HISTORY: 39-year-old female [id number] MALIGNANT NEOPLASM OF THYROID GLAND. Thyroid gland surgicall y removed 1 year ago TECHNIQUE: Multiple sonographic images of the tyroid gland are obtained. FINDINGS: GLAND SIZE: Right Lobe: Surgically absent Left Lobe: Surgically absent NODULES RIGHT: # of nodules measured on right: 0 LEFT: # of nodules measured on left: 0 ISTHMUS: # of nodules measured in the isthmus: 0 Bilateral neck scanned, no evidence of lymphadenopathy. IMPRESSION: Status post thyroidectomy without residual gland or suspicious nodule seen.
== END | disposition home or self-care (01) ==
LOC: RADUSWWP 15:23
PROVIDERS: ATTEND Internal Medicine Endocrinology, Diabetes & Metabolism
DX: C73 Malignant neoplasm of thyroid gland (principal); E89.0 Postprocedural hypothyroidism
CPT/HCPCS: 76536; 84443

== ENCOUNTER → 2020-12-31 | Outpatient (CLI) | payer OTHER | END | disposition home or self-care (01) | LOC: LABWHC1 16:10 | PROVIDERS: ATTEND Internal Medicine Endocrinology, Diabetes & Metabolism | DX: C73 Malignant neoplasm of thyroid gland (principal) | CPT/HCPCS: 36415; 84432; 84443; 86800 ==

== ENCOUNTER → 2021-02-14 | Outpatient (CLI) | payer OTHER | END | disposition home or self-care (01) | LOC: LABWHC1 15:51 | PROVIDERS: ATTEND Internal Medicine Endocrinology, Diabetes & Metabolism | DX: C73 Malignant neoplasm of thyroid gland (principal) | CPT/HCPCS: 36415; 84432; 84443; 86800 ==

== ENCOUNTER → 2021-08-12 | Outpatient (CLI) | payer OTHER | END | disposition home or self-care (01) | LOC: LABWHC1 15:44 | PROVIDERS: ATTEND Internal Medicine Endocrinology, Diabetes & Metabolism | DX: C73 Malignant neoplasm of thyroid gland (principal) | CPT/HCPCS: 36415; 84432; 84443; 86800 ==

== ENCOUNTER → 2021-08-22 | Outpatient (CLI) | payer OTHER ==
[2021-08-22 10:24] VITALS: BP 118/84; PULSE 84; RESP 17; TEMP 98.1
--- NOTE | 2021-08-22 11:27 | P.GSHP ---
History of Present Illness H&P Date: 08/22/21 Chief Complaint: abnormal right breast ultrasound Grecia is a 40 year old white female seen in consultation for DR. Hanks regarding an abnormal ultrasound of the right breast on 06-04-21 showed a 2.7 x 3.1 cm circumscribed area of hypoechoic mass at the 3 o'clock position of the right breast. Grecia had bilateral nipple piercings done approximately 5 years ago. In March 2021 she noted some nipple discharge from the right side as well as the area of nodularity. He subsequently had drainage from this site and was treated with approximately 6 courses of antibiotics. The area of nodularity is not palpable however she continues to have nipple discharge. She did have a bilateral mammogram performed on [id number] normal appearance of the left breast and ultrasound of the right breast was recommended with findings as noted. She is not complaining of any fever or chills. She has not had anything like this in the past. She completed her last course of antibiotics approximately one month ago. She saw an infectious disease Dr. had another ultrasound done in July at [facility] and and told to return to family . (The results from [facility] are not available) Is not complaining of any lumps masses or nodules of concern. She does have persistent drainage medial to the nipple. There is no fever or chills. This is been ongoing since March 2021. Family history: paternal aunt: bone cancer patient: thyroid cancer Hormonal History: menarche: 10 breast fed: no, first born at 16 periods: had a hysterectomy at 36; left her ovaries done for bleeding Surgical History: tonsil thyroid total removed appy hysterectomy Medical History: hypothyroid migraine headaches bilateral hernia repairs Social History: smoke: 1 cigarette/day for 24 years; used to smoke 1/2 PPD alcohol: 1/week (7-8 drinks of whiskey) used to drink daily/ whiskey Marijuana: Negative Drugs: Negative - Constitutional Constitutional: Denies chills, Denies fever - EENT Eyes: denies blurred vision, denies pain Ears: deny: decreased hearing, tinnitus Ears, nose, mouth and throat: Denies headache, Denies sore throat - Breasts Breasts: bilateral: as per HPI - Cardiovascular Cardiovascular: Denies chest pain, Denies shortness of breath - Respiratory Respiratory: Reports as per HPI, Reports cough - Gastrointestinal Gastrointestinal: Denies abdominal pain, Denies diarrhea, Denies nausea, Denies vomiting - Genitourinary (Female) Genitourinary: Reports kidney stones, Denies dysuria, Denies hematuria - Menstruation Menstruation: Reports post hysterectomy - Musculoskeletal Musculoskeletal: Denies myalgias - Integumentary Comment: itching on right breast Integumentary: Denies pruritus, Denies rash - Neurological Neurological: Denies numbness, Denies weakness - Psychiatric Psychiatric: Denies anxiety, Denies depression - Endocrine Endocrine: Reports as per HPI - Hematologic/Lymphatic Hematologic/Lymphatic: Reports as per HPI - Allergic/Immunologic Allergic/Immunologic: Reports seasonal allergies Past Medical History Past Medical History: Cancer, Neurologic Disorder, Thyroid Disorder Additional Past Medical History / Comment(s): Hx of kidney stones,migraines, thyroid cancer-2019 History of Any Multi-Drug Resistant Organisms: None Reported Past Surgical History: Hernia Repair, Hysterectomy, Tonsillectomy Additional Past Surgical History / Comment(s): EGD; kidney stone removal, thyroidectomy-2019 Past Anesthesia/Blood Transfusion Reactions: No Reported Reaction Additional Past Anesthesia/Blood Transfusion Reaction / Comment(s): no hx blood transfusion Past Psychological History: Anxiety Smoking Status: Current every day smoker Past Alcohol Use History: Occasional Additional Past Alcohol Use History / Comment(s): started smoking at age 13,smokes <1ppd Past Drug Use History: None Reported - Past Family History Mother Family Medical History: No Reported History Additional Family Medical History / Comment(s): . Father Additional Family Medical History / Comment(s): heart problems,aneurysm Medications and Allergies Home Medications Medication Instructions Recorded Confirmed Type SUMAtriptan succinate 100 mg PO DAILY PRN 01/05/17 08/22/21 History Citalopram Hydrobromide 40 mg PO HS 10/14/17 08/22/21 History [Citalopram HBr] Levothyroxine Sodium [Synthroid] 88 mcg PO DAILY 08/22/21 08/22/21 History Allergies Allergy/AdvReac Type Severity Reaction Status Date / Time prochlorperazine Allergy Unknown Rash/Hives Verified 08/22/21 10:24 [From Compazine] prochlorperazine edisylate Allergy Unknown Rash/Hives Verified 08/22/21 10:24 [From Compazine] doxycycline Allergy Rash/Hives Verified 08/22/21 10:24 pseudoephedrine HCl Allergy Rash/Hives Verified 08/22/21 10:24 [From Sudafed] sertraline HCl [From Zoloft] Allergy Rash/Hives Verified 08/22/21 10:24 Surgical - Exam Vital Signs Temp Pulse Resp BP 98.1 F 84 17 118/84 08/22/21 10:20 08/22/21 10:20 08/22/21 10:20 08/22/21 10:20 LA 22.6 - General no distress - Eyes normal ocular movement - Neck trachea midline - Respiratory normal respiratory effort, clear to auscultation - Cardiovascular Rhythm: regular Heart Sounds: normal: S1, S2 - Abdomen Abdomen: soft - Integumentary normal turgor - Neurologic no disoriented, no combative - Musculoskeletal normal gait - Psychiatric oriented to time, oriented to person, oriented to place, speech is normal, memory intact Breast Exam: BRA: 36C inspection: Area of granulation tissue medial aspect 3 o'clock position right breast periareolar, bilateral grade 2 ptosis Palpation: Right breast: Multiple positional exam fibrocystic changes no dominant masses or nodules of concern; 2 1/2 cm by 1 1/2 cm of skin with granulation tissue and bogginess consistent with lesion seen on ultrasound Right axilla: No adenopathy of concern Left breast: Multi-positional exam fibrocystic changes no dominant masses or nodules of concern Left axilla: No adenopathy of concern Results Ultrasound results personally reviewed and interpreted/felt to be consistent with findings on physical examination consistent with granulation tissue and chronic abscess formation Mammogram report reviewed Assessment and Plan Assessment: Impression: 1. chronic wound right breast treated with multiple courses of antibiotics without healing 2. hypothyroid 3. migraine headaches Plan: 1. debridement in OR 2. obtain culture reports Risks and benefits of the procedure discussed with the patient. Risks include but are not limited to bleeding, infection, reaction to the anesthetic. She understands that this would be debrided and left open and packed healing from the inside out. Additionally she's been recommended to stop smoking. Cc: Dr. Hanks
== END | disposition home or self-care (01) ==
LOC: WWCWWP 09:55
PROVIDERS: ATTEND Surgery
DX: Z53.9 Procedure and treatment not carried out, unspecified reason (principal)

== ENCOUNTER 2021-09-17 07:21 | Day surgery (SDC) | payer OTHER ==
[2021-09-16 08:43] VITALS: BMI 23.3
[~2021-09-17 07:21] MED LIST changes: -DEXAMETHASONE SOD PHOSPHATE 10 MG/ML 1 ML VIAL IV ONE; +DEXAMETHASONE SOD PHOSPHATE 4 MG/ML 1 ML VIAL IV ONE; -HEPARIN SODIUM,PORCINE 5,000 UNIT/ML 1 ML VIAL SQ ONE; +HEPARIN SODIUM,PORCINE/PF 5,000 UNIT/0.5 ML SYRINGE SQ PRN; +LIDOCAINE 1% (10MG/ML) FOR IV START INTRADERMA PRN; -MORPHINE SULFATE 4 MG/ML SYRINGE IV PRN; -ONDANSETRON 4 MG/2 ML VIAL IVP PRN; +Pre Op ABX Message 1 EACH MISC MISCELLANE ONE; +SCOPOLAMINE 1.5MG/72HR PATCH TRANSDERM ONE; -ceFAZolin IN SWFI 2 GM/20 ML SYRINGE IVP ONE
[2021-09-17] MEDS ORDERED: fentaNYL (PF) 50 MCG/ML 2 ML AMP ONE (08:35)
[2021-09-17] MEDS ORDERED: LIDOCAINE 1% INJ 10MG/ML (20 ML MDV) ONE (08:35)
[2021-09-17] MEDS ORDERED: MIDAZOLAM 2 MG/2 ML VIAL ONE (08:35)
[2021-09-17] MEDS ORDERED: PROPOFOL 10 MG/ML 20 ML VIAL IV ONE (08:35)
[2021-09-17] MEDS ORDERED: SODIUM CHLORIDE 0.9% 100 ML with ceFAZolin 2,000 MG IV ONE ×2 (08:37)
--- NOTE | 2021-09-17 09:16 | P.OP ---
Date of Procedure: 09/17/21 Preoperative Diagnosis: Nonhealing wound right periareolar area medial aspect/status post nipple piercing Postoperative Diagnosis: Same Procedure(s) Performed: Excisional debridement right periareolar wound, probing of tract to the nipple piercing Anesthesia: BRIAN Surgeon: Tracey Molina Estimated Blood Loss (ml): 2 IV fluids (ml): 500 Pathology: other (Debrided tissue) Condition: stable Disposition: same day Indications for Procedure: Nonhealing wound right breast Operative Findings: Nonhealing wound right breast with granulomatous-like changes Description of Procedure: The patient is a 40-year-old white female status post nipple piercing on the right side after which she developed multiple abscesses and nonhealing draining wound in the medial aspect of the right periareolar region. She was taken to the operating room for debridement of this area. Excisional debridement was performed. The lesion was 3 cm x 1.5 cm wide and 1 cm deep. Cultures were obtained. The wound was well irrigated. There was noted to be some tracking which appeared to be from the nipple piercing site in this area was probed. Nylon sutures were placed. The wound was left open. The wound was packed using quarter inch iodoform gauze. The patient tolerated the procedure in stable condition. She will follow-up with Dr. Miles in 1 week.
--- NOTE | 2021-09-17 09:20 | P.DS ---
Providers Attending physician: Tracey Molina Primary care physician: Jarek Hanks Plan - Discharge Summary Discharge Rx Participant: Yes New Discharge Prescriptions: No Action SUMAtriptan succinate 100 mg PO DAILY PRN PRN Reason: Migraine Headache Citalopram Hydrobromide [Citalopram HBr] 40 mg PO HS Levothyroxine Sodium [Synthroid] 88 mcg PO DAILY Ibuprofen 200 mg PO Q8H PRN PRN Reason: Pain Discharge Medication List SUMAtriptan succinate 100 mg PO DAILY PRN 01/05/17 [History] Citalopram Hydrobromide [Citalopram HBr] 40 mg PO HS 10/14/17 [History] Levothyroxine Sodium [Synthroid] 88 mcg PO DAILY 08/22/21 [History] Ibuprofen 200 mg PO Q8H PRN 09/16/21 [History] Follow up Appointment(s)/Referral(s): Tracey Molina MD [STAFF PHYSICIAN] - 1 Week Activity/Diet/Wound Care/Special Instructions: Teach patient wound care Patient to call Thursday for culture results may shower wear bra at all times do not drive today or if taking narcotic pain medicine Discharge Disposition: HOME SELF-CARE
[2021-09-17 09:31] VITALS: TEMP 96.8
[2021-09-17 10:19] VITALS: RESP 18
[2021-09-17 10:46] VITALS: BP 111/77; PULSE 86
== END 2021-09-17 11:26 | disposition home or self-care (01) ==
LOC: OR 07:21
PROVIDERS: ATTEND Surgery
DX: T81.89XA Other complications of procedures, not elsewhere classified, initial encounter (principal); Z98.890 Other specified postprocedural states
CPT/HCPCS: 11042; 88304; 87070; 87205; 87075; J2250; J1100; J2405; J0690; J2001; J3010; J2704; J1644

== ENCOUNTER → 2021-09-26 | Outpatient (CLI) | payer OTHER ==
[2021-09-26 16:14] VITALS: BP 120/82; PULSE 90; RESP 16; TEMP 98.1
--- NOTE | 2021-09-26 16:24 | P.PN ---
Progress Note - Text Progress Note Date: 09/26/21 Grecia is a 40 year old white female status post incision and drainage and curettage of a right breast abscess. This was done and 2121. Pathology revealed abscess with acute and chronic inflammation, fibrosis, that necrosis, histiocytes and focal foreign body reaction to non-refractile material. The cultures were no growth for both aerobic and anaerobic organisms. The patient is changing the packing in the wound is healing. Incision: Packing changed clean and dry no evidence of infection Plan: Continue present wound care patient will follow-up in 2 weeks CC: Dr. Hanks
== END | disposition home or self-care (01) ==
LOC: WWCWWP 15:57
PROVIDERS: ATTEND Surgery
DX: Z53.9 Procedure and treatment not carried out, unspecified reason (principal)

== ENCOUNTER → 2021-11-26 | Outpatient (CLI) | payer OTHER | END | disposition home or self-care (01) | LOC: LABWHC1 11:41 | PROVIDERS: ATTEND Internal Medicine Endocrinology, Diabetes & Metabolism | DX: C73 Malignant neoplasm of thyroid gland (principal) | CPT/HCPCS: 36415; 84432; 84443; 86800 ==

== ENCOUNTER → 2022-01-27 | Outpatient (CLI) | payer OTHER | END | disposition home or self-care (01) | LOC: LABWHC1 08:50 | PROVIDERS: ATTEND Internal Medicine Endocrinology, Diabetes & Metabolism | DX: C73 Malignant neoplasm of thyroid gland (principal) | CPT/HCPCS: 36415; 84432; 84443; 86800 ==

== ENCOUNTER → 2022-06-09 | Outpatient (CLI) | payer OTHER ==
--- NOTE | 2022-06-09 13:13 | US ---
EXAMINATION TYPE: US thyroid st tissue head/neck DATE OF EXAM: 06/09/2022 COMPARISON: 07/18/2020 CLINICAL HISTORY: C73 Malignant neoplasm of thyroid gland. Complete thyroidectomy 2019. GLAND SIZE: Right Lobe: Surgically absent Left Lobe: Surgically absent Isthmus Thickness: Surgically absent NODULES RIGHT: # of nodules measured on right: 0 LEFT: # of nodules measured on left: 0 ISTHMUS: # of nodules measured in the isthmus: 0 Bilateral neck scanned, no evidence of lymphadenopathy. IMPRESSION: Status post thyroidectomy without evidence of recurrent thyroid tissue.
== END | disposition home or self-care (01) ==
LOC: RADUSWWP 12:29
PROVIDERS: ATTEND Internal Medicine Endocrinology, Diabetes & Metabolism
DX: C73 Malignant neoplasm of thyroid gland (principal)
CPT/HCPCS: 76536; 84432; 84443; 86800

== ENCOUNTER → 2022-08-18 | Outpatient (CLI) | payer OTHER ==
[2022-08-18 17:52] LABS: Basophils # (A) 0.06 X 10*3/uL (0.00-0.10); Eosinophils % (A) 1.6 %; HCT 45.9 % (37.2-46.3); HGB 15.1 g/dL (12.0-15.0); Immature Grans, Automated 0.3 %; Lymphocytes # (A) 1.94 X 10*3/uL (0.90-5.00); Lymphocytes % (A) 31.4 %; MCH 31.7 pg (27.0-32.0); MCHC 32.9 g/dL (32.0-37.0); MCV 96.2 fL (80.0-97.0); Mean Platelet Volume 9.4 fL (9.5-12.2); Monocytes # (A) 0.41 X 10*3/uL (0.20-1.00); Monocytes % (A) 6.6 %; NRBC Per 100 WBC 0 /100 WBCS (0.0-0.0); Neutrophils # (A) 3.64 X 10*3/uL (1.80-7.70); Neutrophils % (A) 59.1 %; Platelet Count 275 X 10*3/uL (140-440); RBC 4.77 X 10*6/uL (4.10-5.20); RDW 12.5 % (11.5-14.5); WBC 6.17 X 10*3/uL (4.50-10.00)
[2022-08-18 17:57] LABS: ALT 48 U/L (8-44); AST 36 U/L (13-35); African American GFR (CKD) 93.8 (60.0-200.0); Albumin 5.1 g/dL (3.8-4.9); Albumin/Globulin Ratio 2.13 (1.60-3.17); Alkaline Phosphatase 93 U/L (41-126); BUN/Creat Ratio 13.24 Ratio (12.00-20.00); Blood Urea Nitrogen 11.6 mg/dL (9.0-27.0); C Reactive Protein <0.30 mg/dL (0.00-0.80); Calcium 9.3 mg/dL (8.7-10.3); Carbon Dioxide 27.7 mmol/L (20.0-27.5); Chloride 105 mmol/L (96-109); Globulin 2.4 g/dL (1.6-3.3); Glucose 108 mg/dL (70-110); Non-African American GFR(CKD) 80.9 (60.0-200.0); Potassium 4.1 mmol/L (3.5-5.5); Sodium 144 mmol/L (135-145); Total Protein 7.5 g/dL (6.2-8.2)
[2022-08-18 18:08] LABS: Erythrocyte Sedimentation Rate 1 mm/Hr (0-20)
[2022-08-18 23:50] LABS: Gliadin AB IgA, Deaminated NEGATIVE (NEGATIVE); Gliadin AB IgA, Unit 0.8 U/mL; Gliadin AB IgG, Deaminated NEGATIVE (NEGATIVE); Gliadin AB IgG, Unit <0.4 U/mL
== END | disposition home or self-care (01) ==
LOC: LABWHC1 13:15
PROVIDERS: ATTEND Nurse Practitioner Family
DX: K52.9 Noninfective gastroenteritis and colitis, unspecified (principal); R74.01 Elevation of levels of liver transaminase levels
CPT/HCPCS: 36415; 80053; 83516; 85025; 85652; 86140

== ENCOUNTER → 2023-01-15 | Outpatient (CLI) | payer OTHER ==
[2023-01-16 02:22] LABS: African American GFR (CKD) 90.1 (60.0-200.0); Albumin 4.9 g/dL (3.8-4.9); Albumin/Globulin Ratio 2.23 (1.60-3.17); Anion Gap 12.1 mmol/L (10.00-18.00); BUN/Creat Ratio 15.78 Ratio (12.00-20.00); Blood Urea Nitrogen 14.2 mg/dL (9.0-27.0); Calcium 9.4 mg/dL (8.7-10.3); Carbon Dioxide 23.9 mmol/L (20.0-27.5); Globulin 2.2 g/dL (1.6-3.3); Non-African American GFR(CKD) 77.8 (60.0-200.0); Potassium 4.3 mmol/L (3.5-5.5); Total Bilirubin 0.5 mg/dL (0.30-1.20); Total Protein 7.1 g/dL (6.2-8.2)
== END | disposition home or self-care (01) ==
LOC: LABWHC1 16:14
PROVIDERS: ATTEND Internal Medicine Endocrinology, Diabetes & Metabolism
DX: C73 Malignant neoplasm of thyroid gland (principal); R74.01 Elevation of levels of liver transaminase levels
CPT/HCPCS: 36415; 80053; 84432; 84443; 86800

== ENCOUNTER → 2023-06-12 | Outpatient (CLI) | payer OTHER ==
--- NOTE | 2023-06-16 08:42 | CT ---
EXAMINATION TYPE: CT soft tissue neck w con DATE OF EXAM: 06/12/2023 COMPARISON: Correlation thyroid ultrasound 04/24/2023. Cervical spine CT 02/26/2016 HISTORY: 42-year-old female R22.1, nodule found in neck. Hx of thyroid ca with thyroidectomy TECHNIQUE: Contiguous axial scanning of the soft tissues of the neck performed with IV Contrast, shabbir ent injected with 70 mL of Isovue 300. Coronal/sagittal reconstructions performed. CT DLP: 446.20 mGycm Automated exposure control for dose reduction was used. FINDINGS: Visualized intracranial structures, orbits and globes, paranasal sinuses, and mastoid air cells appea r clear. Nasopharynx and oropharynx appear clear. Epiglottis and prevertebral soft tissues are satisfactory. There is nodular asymmetry to the left aryepiglottic fold, axial image 46 which should be correlated with direct inspection to exclude a mucosal lesion. There is some asymmetric ossification that has developed along the left thyroid cartilage probably on a postsurgical basis. Otherwise, the remainder of the glottic and subglottic structures and tracheal column appear clear. Biapical pleural-parenchymal scarring. Conventional arch vessel branching anatomy. We are unable to identify any suspicious cervical adenopathy or abnormal nodule that would correlate with the finding on patient's recent ultrasound. Ultrasound follow-up is recommended. Bones: No osseous destructive process. IMPRESSION: 1. DEVELOPMENT OF ASYMMETRIC OSSIFICATION ALONG THE LEFT THYROID CARTILAGE LIKELY ON A POSTSURGICAL B ASIS. THE THYROIDECTOMY BED ITSELF APPEARS CLEAR. 2. THERE IS NODULAR ASYMMETRY TO THE LEFT ARYEPIGLOTTIC FOLD WHICH SHOULD BE CORRELATED WITH DIRECT I NSPECTION TO EXCLUDE A MUCOSAL LESION HERE. 3. NO OTHER SUSPICIOUS SOFT TISSUE NODULE OR CERVICAL LYMPHADENOPATHY IDENTIFIED. ULTRASOUND SURVEILL ANCE RECOMMENDED FOR THE NODULE SEEN ON THE RECENT ULTRASOUND EXAM. Follow-up tumor markers as well.
== END | disposition home or self-care (01) ==
LOC: RADCTMAIN 16:01
PROVIDERS: ATTEND Surgery
DX: E04.1 Nontoxic single thyroid nodule (principal); R22.1 Localized swelling, mass and lump, neck; Z85.850 Personal history of malignant neoplasm of thyroid
CPT/HCPCS: 70491; Q9967

== ENCOUNTER → 2023-07-07 | Outpatient (CLI) | payer OTHER | END | disposition home or self-care (01) | LOC: LABWHC1 07:32 | PROVIDERS: ATTEND Surgery | DX: C73 Malignant neoplasm of thyroid gland (principal) | CPT/HCPCS: 36415; 84432 ==

== ENCOUNTER → 2023-09-30 | Outpatient (CLI) | payer OTHER ==
--- NOTE | 2023-09-30 21:00 | US ---
EXAMINATION TYPE: US thyroid st tissue head/neck DATE OF EXAM: 09/30/2023 COMPARISON: 04/24/2023 CLINICAL INDICATION: Female, 42 years old with history of E03.8 HYPOTHYROIDISM; Patient had thyroidec maegan in 2019. Patient had radiation treatment a couple weeks ago. GLAND SIZE: Right Lobe: Surgically absent Left Lobe: Surgically absent Isthmus: Surgically absent NODULES RIGHT: # of nodules measured on right: *Hyperechoic round area right superior neck as seen on prior measures: 0.8 x 0.7 x 0.6 cm. LEFT: # of nodules measured on left: Nodular hypoechoic area seen inferior left thyroid bed measu rin.8 x 0.9 x 0.4. Possible lymph node or some residual thyroid tissue. Reassess at follow-up. IMPRESSION: 1. Status post thyroidectomy. 2. An 8 mm echogenic nodule right superior neck remains unchanged compared to 04/24/2023. A can continu e to be followed. 3. Hypoechoic area measuring 9 mm anterior to the left thyroid bed could represent a lymph node or so me residual thyroid tissue. Reassess at follow-up.
== END | disposition home or self-care (01) ==
LOC: RADUSWWP 15:10
PROVIDERS: ATTEND Internal Medicine Endocrinology, Diabetes & Metabolism
DX: E07.89 Other specified disorders of thyroid (principal); E03.8 Other specified hypothyroidism; Z90.89 Acquired absence of other organs
CPT/HCPCS: 36415; 76536; 84443

== ENCOUNTER → 2024-02-16 | Outpatient (CLI) | payer OTHER ==
[2024-02-16 19:13] LABS: ALT 123 U/L (8-44); AST 84 U/L (13-35); Albumin 4.8 g/dL (3.8-4.9); Albumin/Globulin Ratio 2.18 Ratio (1.60-3.17); Alkaline Phosphatase 118 U/L (41-126); BUN/Creat Ratio 14.71 Ratio (12.00-20.00); Blood Urea Nitrogen 10.3 mg/dL (9.0-27.0); Calcium 9.7 mg/dL (8.7-10.3); Carbon Dioxide 28.3 mmol/L (21.6-31.8); Chloride 100 mmol/L (96-109); Globulin 2.2 g/dL (1.6-3.3); Glucose 123 mg/dL (70-110); Potassium 3.8 mmol/L (3.5-5.5); Sodium 141 mmol/L (135-145); Total Bilirubin 0.7 mg/dL (0.3-1.2)
== END | disposition home or self-care (01) ==
LOC: LABWHC1 15:23
PROVIDERS: ATTEND Nurse Practitioner Family
DX: R74.01 Elevation of levels of liver transaminase levels (principal)
CPT/HCPCS: 36415; 80053; 81596